=== PATIENT | female | born 1980 | race American Indian/Alaskan Native ===

== ENCOUNTER 2016-09-15 15:38 | Emergency (ER) | payer MEDICARE, OTHER ==
[2016-09-15 15:39] VITALS: BMI 53.2
[2016-09-15 15:46] VITALS: RESP 18; TEMP 98.2
[2016-09-15] MEDS: Albuterol-Ipratrop 3 mg / 0.5 (3 ml) UD IH SCH ×3 (16:20→16:41)
--- NOTE | 2016-09-15 16:33 | ED PDOC ---
Arrival/HPI - General Chief Complaint: Shortness Of Breath Time Seen by Provider: 09/15/16 16:02 Historian: Patient - History of Present Illness Narrative History of Present Illness (Text): 09/15/16 16:12 Brent Lees is a 36 year old female, with a history of asthma, presents to the emergency department complaining of shortness of breath and cough with sputum production since today morning. States she is currently moving, and was unable to use her nebs and inhaler treatments at home. States she used 2 doses Singulair for minimal symptomatic relief. She also complains of itchiness to the roof of the mouth, and states she usually feels like this after smoking marijuana; however, states that it was worse today morning. Denies any fever, chills, headache, dizziness, nausea, vomiting, diarrhea, or any other complaints at this time. Time/Duration: Other (today morning ) Symptom Course: Unchanged Severity Level: Mild Past Medical History - Provider Review Nursing Documentation Reviewed: Yes - Infectious Disease Hx of Infectious Diseases: None - Tetanus Immunization Tetanus Immunization: Unknown - Cardiac Hx Hypertension: Yes - Pulmonary Hx Asthma: Yes - Neurological Hx Neurological Disorder: No - HEENT Hx HEENT Disorder: No - Renal Hx Renal Disorder: No - Endocrine/Metabolic Hx Endocrine Disorders: Yes Hx Diabetes Mellitus Type 2: Yes - Hematological/Oncological Hx Blood Disorders: No - Integumentary Hx Dermatological Disorder: No - Musculoskeletal/Rheumatological Hx Musculoskeletal Disorders: Yes Hx Back Pain: Yes Hx Herniated Disk: Yes Other/Comment: HEEL SPURS - Gastrointestinal Hx Gastrointestinal Disorders: No - Genitourinary/Gynecological Hx Genitourinary Disorders: No - Psychiatric Hx Depression: No Hx Substance Use: Yes - Surgical History Hx Section: Yes Hx Dilation and Curettage: Yes Hx Musculoskeletal Surgery: Yes (back) Hx Tubal Ligation: Yes Other/Comment: Back surgery, 04/2013, 1 , 5 miscarriages - Anesthesia Hx Anesthesia: Yes - Suicidal Assessment Feels Threatened In Home Enviroment: No Family/Social History - Physician Review Nursing Documentation Reviewed: Yes Family/Social History: No Known Family HX Smoking Status: Never Smoked Hx Alcohol Use: Yes Frequency of alcohol use: Socially Hx Substance Use: Yes Substance used: marijuana Hx Substance Use Treatment: No Allergies/Home Meds Allergies/Adverse Reactions: Allergies cat dander Allergy (Mild, Verified 03/28/16 23:46) ITCHING dog dander Allergy (Mild, Verified 03/28/16 23:46) ITCHING shellfish derived Allergy (Verified 03/28/16 23:46) ANAPHYLAXIS shrimp Allergy (Verified 03/28/16 23:46) ANAPHYLAXIS Home Medications: Home Meds Medication Instructions Recorded Confirmed Albuterol HFA [Ventolin HFA 90 2 puff IH Q4H PRN 09/15/16 09/15/16 mcg/actuation (8 g)] Montelukast [Singulair] 10 mg PO DAILY 09/15/16 09/15/16 Review of Systems - Review of Systems Constitutional: absent: Fatigue, Fevers, Night Sweats Eyes: absent: Vision Changes ENT: Sore Throat, Sinus Congestion, Other (itchiness to roof of mouth ). absent : Voice Changes, Rhinorrhea, Epistaxis Respiratory: SOB, Cough, Sputum Cardiovascular: absent: Chest Pain, Edema, Calf Pain, BAZZI Gastrointestinal: absent: Abdominal Pain, Nausea, Vomiting, Appetite Changes Genitourinary Female: absent: Dysuria Musculoskeletal: absent: Back Pain, Neck Pain Skin: absent: Rash Neurological: absent: Headache, Dizziness Endocrine: absent: Polyuria Hemo/Lymphatic: absent: Easy Bleeding Physical Exam - Physical Exam Narrative Physical Exam (Text): Head: Atraumatic. Normocephalic. Eyes: PERRL. EOMI. Conjunctivae are not pale. No pain with eye movments ENT: Mucous membranes are moist and intact. Oropharynx is clear and symmetric. Single nonvesicular lesion noted to left upper palpate with no erythema or edema or purulence. Mild left tonsil prominence. No drooling. No uvular deviation. Left TM bulging but no erythema or edema. No mastoid tenderness. No facial swelling. No facial droop. Neck: Supple. Full ROM. No JVD. No lymphadenopathy. Cardiovascular: Regular rate. Regular rhythm. No murmurs, rubs, or gallops. Distal pulses are 2+ and symmetric. Pulmonary/Chest: No evidence of respiratory distress. No rales or rhonchi. B/l expiratory wheezing. No accessory muscle usage. Abdominal: Soft and non-distended. There is no tenderness. No rebound, guarding, or rigidity. No organomegaly. Good bowel sounds. Back: No CVA tenderness. Extremities: No edema. No cyanosis. No clubbing. Full range of motion in all extremities. No calf tenderness. Skin: Skin is warm and dry. No petechiae. No purpura. Neurological: Alert, awake, and oriented. Motor and sensory intact. No facial droop. Normal speech. Psychiatric: Good eye contact. Normal interaction, affect, and behavior. 09/16/16 20:17 Vital Signs Reviewed: Yes Vital Signs Temp Pulse Resp BP Pulse Ox 09/15/16 20:29 72 18 127/80 99 09/15/16 18:52 79 18 128/75 98 09/15/16 17:23 89 18 130/78 98 09/15/16 15:46 98.2 F 94 H 18 132/89 98 09/15/16 15:45 18 Temperature: Afebrile Blood Pressure: Normal Pulse: Regular Respiratory Rate: Normal Appearance: Positive for: Well-Appearing, Non-Toxic, Comfortable Pain Distress: Mild Mental Status: Positive for: Alert and Oriented X 3 Medical Decision Making ED Course and Treatment: 09/15/16 16:35 Impression: A 36 year old female who presents to the emergency department complaining of shortness of breath since today morning. Differential Diagnosis included but are not limited to: Asthma vs. Pneumonia Plan: -- EKG -- Labs, cardiac enzymes -- Chest X-ray -- Duoneb -- Solumedrol -- Reassess and disposition Progress Notes: Patient with hx of astthma. Ran out of nebs. No calf pain. No hypoxia. No pleuritic pain. URI symptoms described. She has nasal congestion but no erythema or facial swelling. 09/15/16 19:36 After 3 nebulizer treatments and steroids, patient has resolution of wheezing. She is able to speak in full sentences, no pain or discomfort, no hypoxia. Patient is stable for discharge, will discharge home on prescription for nebulizers which she ran out. Advised to return to emergency department for new/ worsening symptoms and follow up with PMD within few days. Potassium replaced. No symptomatic arrhythmias noted. No respiratory distress noted. CXR and labs reviewed with patient. Follow-up plan reviewed and discussed. Patient reports prior history of anemia. No active bleeding noted or reported. - Lab Interpretations Lab Results: 09/15/16 16:35 09/15/16 16:35 Lab Results 09/15/16 16:35: Sodium 141, Potassium 3.2 L, Chloride 104, Carbon Dioxide 28, Anion Gap 12, BUN 11, Creatinine 0.8, Est GFR ( Amer) > 60, Est GFR (Non- Af Amer) > 60, Random Glucose 101, Calcium 9.2, Total Bilirubin 0.5, AST 25, ALT 36, Alkaline Phosphatase 52, Lactate Dehydrogenase 629, Total Creatine Kinase 139, Troponin I < 0.01, Total Protein 7.8, Albumin 4.1, Globulin 3.7, Albumin/Globulin Ratio 1.1 09/15/16 16:35: WBC 6.6 D, RBC 4.54, Hgb 10.6 L, Hct 34.2 L, MCV 75.3 L, MCH 23.3 L, MCHC 31.0, RDW 16.3 H, Plt Count 394, MPV 10.1, Gran % 51.3, Lymph % ( Auto) 38.1 H, Towns % (Auto) 7.0 H, Eos % (Auto) 3.3, Baso % (Auto) 0.3, Gran # 3.39, Lymph # 2.5, Towns # 0.5, Eos # 0.2, Baso # 0.02 - RAD Interpretation Radiology Orders: 09/15/16 16:03 CHEST TWO VIEWS (PA/LAT) [RAD] Stat - Medication Orders Current Medication Orders: Discontinued Medications Albuterol/Ipratropium (Duoneb 3 Mg/0.5 Mg (3 Ml) Ud) 3 ml IH Q15M AISHWARYA Stop: 09/15/16 16:46 Last Admin: 09/15/16 16:41 Dose: 3 ml Methylprednisolone (Solu-Medrol) 125 mg IVP STAT STA Stop: 09/15/16 16:04 Last Admin: 09/15/16 16:21 Dose: 125 mg Potassium Chloride (K-Dur 20 Meq Er Tab) 40 meq PO STAT STA Stop: 09/15/16 19:39 Last Admin: 09/15/16 20:27 Dose: 40 meq - Scribe Statement The provider has reviewed the documentation as recorded by the Lucreciaibe Pilar Ahumada Provider Attestation: Provider Scribe Attestation: All medical record entries made by the Lucreciaibcyndi were at my direction and personally dictated by me. I have reviewed the chart and agree that the record accurately reflects my personal performance of the history, physical exam, medical decision making, and the department course for this patient. I have also personally directed, reviewed, and agree with the discharge instructions and disposition. Disposition/Present on Arrival - Present on Arrival Any Indicators Present on Arrival: No History of DVT/PE: No History of Uncontrolled Diabetes: No Urinary Catheter: No History of Decub. Ulcer: No History Surgical Site Infection Following: None - Disposition Have Diagnosis and Disposition been Completed?: Yes Diagnosis: Asthma exacerbation, Sinusitis Disposition: HOME/ ROUTINE Disposition Time: 20:00 Patient Plan: Discharge Condition: GOOD Discharge Instructions (ExitCare): Asthma (ED), Sinusitis (ED), Hypokalemia (ED ) Additional Instructions: Use nebulizer or inhaler as directed. For any fever, any chest pain, any shortness of breath, any abdominal pain, any nausea or vomiting, any pain with exertion, any pain with deep breaths, any bloody sputum or discharge, any persistent or worsening of symptoms, get rechecked. Follow-up with Dr. Fallon in 1-2 days. Prescriptions: Albuterol 0.083% [Albuterol 0.083% Inhal Yadira (2.5 mg/3 ml) UD] 2.5 mg IH Q6 PRN #20 neb PRN Reason: Wheezing predniSONE [Prednisone] 60 mg PO DAILY #15 tab Azithromycin [Zithromax] 250 mg PO DAILY #6 tab Referrals: PCP,NO [Primary Care Provider] - Follow up with primary Forms: [email or web address] (Italian)
[2016-09-15 17:07] LABS: BASO # 0.02 K/mm3 (0.0-2.0); BASO % 0.3 % (0.0-3.0); EOS # 0.2 (0.0-0.7); EOS % 3.3 % (1.5-5.0); GRAN # 3.39 (1.4-6.5); GRAN % 51.3 % (50.0-68.0); HEMOGLOBIN 10.6 gm/dL (12.0-16.0); LYMPH # 2.5 (1.2-3.4); LYMPH % 38.1 % (22.0-35.0); MEAN CELL VOLUME 75.3 fL (80.0-105.0); MEAN CORPUSCULAR HEMOGLOBIN 23.3 pg (25.0-35.0); MEAN PLATELET VOLUME 10.1 fl (7.0-11.0); MONO # 0.5 (0.1-0.6); PLATELET COUNT 394 10^3/uL (120.0-450.0); RBC 4.54 10^6/uL (3.5-6.1); RED CELL DISTRIBUTION WIDTH 16.3 % (11.5-14.5); WHITE BLOOD COUNT 6.6 10^3/ul (4.5-11.0)
[2016-09-15 17:09] LABS: ALB/GLOB RATIO 1.1 (1.1-1.8); ALBUMIN 4.1 g/dL (3.0-4.8); ALT/SGPT 36 U/L (7-56); AST/SGOT 25 U/L (15-39); BLOOD UREA NITROGEN 11 mg/dL (7-21); CALCIUM 9.2 mg/dL (8.4-10.5); GFR AFRICAN-AMERICAN > 60; GFR NON-AFRICAN AMERICAN > 60
[2016-09-15 17:22] LABS: TROPONIN I < 0.01 ng/mL
[2016-09-15] MEDS ORDERED: Potassium Chloride 20 mEq ER Tab PO STA (19:38)
[2016-09-15 20:30] VITALS: BP 127/80; PULSE 72; O2SAT 99
--- NOTE | 2016-09-15 20:37 | CARD ---
APPROVED REPORT EKG Measurement Heart [id number] <Conclusion> Normal sinus rhythm Nonspecific T wave abnormality Abnormal ECG
--- NOTE | 2016-09-16 09:01 | RAD ---
HISTORY: cough, sob COMPARISON: None available. TECHNIQUE: Chest PA and lateral FINDINGS: Examination limited by habitus. LUNGS: No focal consolidation. Please note that chest x-ray has limited sensitivity for the detection of pulmonary masses. PLEURA: No significant pleural effusion identified. No definite pneumothorax . CARDIOVASCULAR: The cardiomediastinal silhouette appears within normal limits of size. OSSEOUS STRUCTURES: No acute osseous abnormality identified. VISUALIZED UPPER ABDOMEN: Unremarkable. OTHER FINDINGS: None. IMPRESSION: No focal consolidation, significant pleural effusion, or definite pneumothorax identified.
== END 2016-09-15 20:30 | disposition home or self-care (01) ==
LOC: ED 15:38
DX: J45.901 Unspecified asthma with (acute) exacerbation (principal); J32.9 Chronic sinusitis, unspecified; I10 Essential (primary) hypertension
CPT/HCPCS: 71020; 80053; 82550; 83615; 84484; 85025; 93005; 94150; 96374; 99285; J2930

== ENCOUNTER 2017-03-18 01:12 | Emergency (ER) | payer MEDICARE, OTHER ==
[2017-03-18 01:12] VITALS: BMI 53.2
[2017-03-18 01:46] VITALS: TEMP 98.6
--- NOTE | 2017-03-18 02:32 | ED PDOC ---
Arrival/HPI - General Historian: Patient <Cyn Song - Last Filed: 03/18/17 03:28> - History of Present Illness Time/Duration: Other (2 days) Symptom Course: Unchanged Activities at Onset: Light Context: Home <Kevin Vu DO - Last Filed: 03/18/17 06:24> - General Chief Complaint: Back Pain Time Seen by Provider: 03/18/17 01:13 - History of Present Illness Narrative History of Present Illness (Text): CC: abdominal pain 03/18/17 02:28 36F presents with abdominal pain starting 01/14. Pain is located in lower quadrant, below umbilicus. Patient states she recently started her period and gets bad cramps 2-3 times a year. Patient states her pain is worse when sitting and when in position. Patient states the pain is a 15/10. Patient admits to feeling sore. Patient denies fever, chills, nausea, vomiting. Patient is not currently sexually active and last intercourse was done with condom, Patient denies abnormal vaginal discharge. Patient states she does not drink a lot of water, has not had regular bowel movements and states her stool is small in caliber. Patient states she urinates frequently and that she's pre-diabetic PMH: chronic back pain, prediabetic PSH: back surgery, section, tubal ligation 03/18/17 02:32 (Cyn Song) Past Medical History - Infectious Disease Hx of Infectious Diseases: None - Tetanus Immunization Tetanus Immunization: Unknown - Cardiac Hx Hypertension: Yes - Pulmonary Hx Asthma: Yes - Neurological Hx Neurological Disorder: No - HEENT Hx HEENT Disorder: No - Renal Hx Renal Disorder: No - Endocrine/Metabolic Hx Endocrine Disorders: Yes Hx Diabetes Mellitus Type 2: Yes - Hematological/Oncological Hx Blood Disorders: No - Integumentary Hx Dermatological Disorder: No - Musculoskeletal/Rheumatological Hx Musculoskeletal Disorders: Yes Hx Back Pain: Yes Hx Herniated Disk: Yes Other/Comment: HEEL SPURS - Gastrointestinal Hx Gastrointestinal Disorders: No - Genitourinary/Gynecological Hx Genitourinary Disorders: No - Psychiatric Hx Depression: No Hx Substance Use: Yes - Surgical History Hx Section: Yes Hx Dilation and Curettage: Yes Hx Musculoskeletal Surgery: Yes (back) Hx Tubal Ligation: Yes Other/Comment: Back surgery, 04/2013, 1 , 5 miscarriages - Anesthesia Hx Anesthesia: Yes - Suicidal Assessment Feels Threatened In Home Enviroment: No <Cyn Song - Last Filed: 03/18/17 03:28> Family/Social History - Physician Review Nursing Documentation Reviewed: Yes Family/Social History: Unknown Family HX Smoking Status: Never Smoked Hx Alcohol Use: Yes Hx Substance Use: Yes Substance used: marijuana Hx Substance Use Treatment: No <NohemiCyn - Last Filed: 03/18/17 03:28> Allergies/Home Meds <Cyn Song - Last Filed: 03/18/17 03:28> <Mirella Kevin - Last Filed: 03/18/17 06:24> Allergies/Adverse Reactions: Allergies cat dander Allergy (Mild, Verified 03/28/16 23:46) ITCHING dog dander Allergy (Mild, Verified 03/28/16 23:46) ITCHING shellfish derived Allergy (Verified 03/28/16 23:46) ANAPHYLAXIS shrimp Allergy (Verified 03/28/16 23:46) ANAPHYLAXIS Home Medications: Home Meds Medication Instructions Recorded Confirmed Albuterol HFA [Ventolin HFA 90 2 puff IH Q4H PRN 09/15/16 03/18/17 mcg/actuation (8 g)] Review of Systems - Physician Review All systems were reviewed & negative as marked: Yes - Review of Systems Constitutional: absent: Fevers Gastrointestinal: Abdominal Pain, Constipation. absent: Diarrhea, Nausea, Vomiting Genitourinary Female: Other (polyuria). absent: Dysuria, Hematuria <Kevin Vu DO - Last Filed: 03/18/17 06:24> Physical Exam Vital Signs Reviewed: Yes Temperature: Afebrile Blood Pressure: Normal Pulse: Regular Respiratory Rate: Normal Appearance: Positive for: Well-Appearing, Non-Toxic, Comfortable Pain Distress: None Mental Status: Positive for: Alert and Oriented X 3 - Systems Exam Head: Present: Atraumatic, Normocephalic Pupils: Present: PERRL Extroacular Muscles: Present: EOMI Conjunctiva: Present: Normal Mouth: Present: Moist Mucous Membranes Neck: Present: Normal Range of Motion Respiratory/Chest: Present: Clear to Auscultation, Good Air Exchange. No: Respiratory Distress, Accessory Muscle Use Cardiovascular: Present: Regular Rate and Rhythm, Normal S1, S2. No: Murmurs Abdomen: Present: Tenderness (lower quadrant inferior to the umbelicus ), Distention (Soft), Normal Bowel Sounds. No: Peritoneal Signs Back: Present: Normal Inspection Upper Extremity: Present: Normal Inspection. No: Cyanosis, Edema Lower Extremity: Present: Normal Inspection. No: Edema Neurological: Present: GCS=15, CN II-XII Intact, Speech Normal Skin: Present: Warm, Dry, Normal Color. No: Rashes Psychiatric: Present: Alert, Oriented x 3, Normal Insight, Normal Concentration <Kevin Vu DO - Last Filed: 03/18/17 06:24> Vital Signs Temp Pulse Resp BP Pulse Ox 03/18/17 04:30 84 19 126/60 99 03/18/17 01:46 98.6 F 80 78 H 133/88 100 Medical Decision Making <Cyn Song - Last Filed: 03/18/17 03:28> <Kevin Vu DO - Last Filed: 03/18/17 06:24> ED Course and Treatment: CBC, CMP, Mg, ph, UA were drawn 03/18/17 04:23 Patient was given Toradol IM for abdominal pain Urinalysis: positive for urinary tract infection patient was given a dose of macrobid and sent home with a prescription for macrobid Patient Seen With Resident: In agreement with resident note which contains more details about the patient. Patient was seen and evaluated with resident. Came up with plan and treatment together. 36 year old female presents complaining lower abdominal pain that began 2 days ago. Plan: -- Torafol -- Macrobid -- Urinalysis w/ micro (Kevin Vu DO) - Lab Interpretations Lab Results: Lab Results 03/18/17 02:30: Urine Color Red, Urine Appearance Cloudy, Urine pH 6.5, Ur Specific [place] 1.025, Urine Protein 100 H, Urine Glucose (UA) Negative, Urine Ketones Trace H, Urine Blood Large H, Urine Nitrate Positive H, Urine Bilirubin Small H, Urine Urobilinogen 1.0 H, Ur Leukocyte Esterase Trace H, Urine RBC Tntc , Urine WBC 1 - 3, Ur Epithelial Cells 0 - 2, Urine Bacteria Mod - Medication Orders Current Medication Orders: Discontinued Medications Ketorolac Tromethamine (Toradol) 60 mg IM STAT STA Stop: 03/18/17 02:28 Last Admin: 03/18/17 02:38 Dose: 60 mg MAR Pain Assessment Document 03/18/17 02:38 RD (Rec: 03/18/17 02:39 RD [id number]) Pain Reassessment Is this a pain reassessment? No Sleep Is patient sleeping during reassessment? No Presence of Pain Presence of Pain Yes IM Administration Charges Document 03/18/17 02:38 RD (Rec: 03/18/17 02:39 RD [id number]) Injection Site MAR Injection Site Left Deltoid Charges for Administration # of IM Administrations 1 Nitrofurantoin Macrocrystals (Macrobid) 100 mg PO ONCE ONE Stop: 03/18/17 03:28 Last Admin: 03/18/17 04:30 Dose: 100 mg <Cyn Song - Last Filed: 03/18/17 03:28> - Scribe Statement The provider has reviewed the documentation as recorded by the Scribe <Kevin Vu DO - Last Filed: 03/18/17 06:24> - Scribe Statement Nissa Dhaliwal Provider Scribe Attestation: All medical record entries made by the Scribe were at my direction and personally dictated by me. I have reviewed the chart and agree that the record accurately reflects my personal performance of the history, physical exam, medical decision making, and the department course for this patient. I have also personally directed, reviewed, and agree with the discharge instructions and disposition. (Kevin Vu DO) Disposition/Present on Arrival - Present on Arrival Any Indicators Present on Arrival: No History of DVT/PE: No History of Uncontrolled Diabetes: No Urinary Catheter: No History of Decub. Ulcer: No History Surgical Site Infection Following: None - Disposition Have Diagnosis and Disposition been Completed?: Yes Disposition Time: 03:28 Patient Plan: Discharge <Cyn Song - Last Filed: 03/18/17 03:28> - Disposition Disposition Time: 03:10 <Kevin Vu DO - Last Filed: 03/18/17 06:24> - Disposition Diagnosis: UTI (urinary tract infection) Disposition: HOME/ ROUTINE Condition: GOOD Additional Instructions: take antibiotics as directed follow up with primary care doctor in one week if symptoms do not get better Prescriptions: Nitrofurantoin Macrocrystals [Macrobid] 100 mg PO BID #13 cap Referrals: James Fallon DO [Primary Care Provider] - Follow up with primary Forms: [employer] (Polish)
[2017-03-18 02:44] LABS: PH,URINE 6.5 (4.7-8.0); URINE BILIRUBIN SMALL (NEGATIVE); URINE BLOOD LARGE (NEGATIVE); URINE GLUCOSE (UA) NEGATIVE (NEGATIVE); URINE LEUKOCYTE ESTERASE TRACE Leu/uL (NEGATIVE); URINE NITRATE POSITIVE (NEGATIVE); URINE PROTEIN 100 mg/dL (<30 mg/dL)
[2017-03-18 02:49] LABS: URINE APPEARANCE CLOUDY (CLEAR); URINE COLOR RED (YELLOW)
[2017-03-18 03:09] LABS: URINE BACTERIA MOD (NEG); URINE EPITHELIAL CELLS 0 - 2 /hpf (0-5); URINE RBC TNTC /hpf (0-2)
[2017-03-18 04:32] VITALS: BP 126/60; PULSE 84; RESP 19; O2SAT 99
== END 2017-03-18 04:30 | disposition home or self-care (01) ==
LOC: ED 01:12
DX: N39.0 Urinary tract infection, site not specified (principal)
CPT/HCPCS: 81001; 96372; 99283; J1885

== ENCOUNTER 2017-07-24 14:30 | Emergency (ER) | payer MEDICARE, OTHER ==
[2017-07-24 14:30] VITALS: BMI 53.2
[2017-07-24] MEDS ORDERED: Albuterol-Ipratrop 3 mg / 0.5 (3 ml) UD IH STA ×2 (15:23→16:51)
--- NOTE | 2017-07-24 15:27 | ED PDOC ---
Arrival/HPI - General Chief Complaint: Cough, Cold, Congestion Time Seen by Provider: 07/24/17 14:34 Historian: Patient - History of Present Illness Narrative History of Present Illness (Text): 07/24/17 15:24 37yr old female with hx of asthma presents today with cough, nasal congestion, ear itching x 4 days. pt states she has been having productive cough with green sputum. pt states she has been wheezing and has been using her asthma pump without relief. pt denies fever/chills. + sick contacts at home. pt states her child was sick with similar symptoms 2 weeks ago. no abdominal pain. no nausea, vomiting, diarrhea. no dizziness or weakness. pt denies chest pain or shortness of breath. pt states she doesnt have a nebulizer at home because she lost it during the move. no other complaints. Past Medical History - Provider Review Nursing Documentation Reviewed: Yes - Travel History Have you recently traveled outside [place] w/in the past 3 mons?: No - Infectious Disease Hx of Infectious Diseases: None - Tetanus Immunization Tetanus Immunization: Unknown - Cardiac Hx Cardiac Disorders: Yes Hx Hypertension: Yes - Pulmonary Hx Respiratory Disorders: Yes Hx Asthma: Yes - Neurological Hx Neurological Disorder: Yes Hx Migraine: Yes - HEENT Hx HEENT Disorder: No - Renal Hx Renal Disorder: No - Endocrine/Metabolic Hx Endocrine Disorders: Yes Hx Diabetes Mellitus Type 2: Yes - Hematological/Oncological Hx Blood Disorders: No - Integumentary Hx Dermatological Disorder: No - Musculoskeletal/Rheumatological Hx Musculoskeletal Disorders: Yes Hx Back Pain: Yes Hx Herniated Disk: Yes Other/Comment: HEEL SPURS - Gastrointestinal Hx Gastrointestinal Disorders: No - Genitourinary/Gynecological Hx Genitourinary Disorders: No - Psychiatric Hx Psychophysiologic Disorder: No Hx Depression: No Hx Substance Use: Yes - Surgical History Hx Section: Yes Hx Dilation and Curettage: Yes Hx Musculoskeletal Surgery: Yes (back) Hx Tubal Ligation: Yes Other/Comment: Back surgery, 04/2013, 1 , 5 miscarriages - Anesthesia Hx Anesthesia: Yes - Suicidal Assessment Feels Threatened In Home Enviroment: No Family/Social History - Physician Review Nursing Documentation Reviewed: Yes Family/Social History: Unknown Family HX Smoking Status: Never Smoked Hx Alcohol Use: Yes Hx Substance Use: Yes Substance used: marijuana Hx Substance Use Treatment: No Allergies/Home Meds Allergies/Adverse Reactions: Allergies cat dander Allergy (Mild, Verified 07/24/17 14:54) ITCHING dog dander Allergy (Mild, Verified 07/24/17 14:54) ITCHING shellfish derived Allergy (Verified 07/24/17 14:54) ANAPHYLAXIS shrimp Allergy (Verified 07/24/17 14:54) ANAPHYLAXIS Home Medications: Home Meds Medication Instructions Recorded Confirmed Albuterol HFA [Ventolin HFA 90 2 puff IH Q4H PRN 09/15/16 07/24/17 mcg/actuation (8 g)] Review of Systems - Review of Systems Constitutional: absent: Fatigue, Fevers ENT: Sore Throat, Sinus Congestion Respiratory: Cough, Sputum (green). absent: SOB Cardiovascular: absent: Chest Pain, Palpitations Gastrointestinal: absent: Abdominal Pain, Nausea, Vomiting Genitourinary Female: absent: Dysuria Musculoskeletal: Other (no calf pain). absent: Arthralgias, Back Pain, Neck Pain Skin: absent: Rash, Pruritis Neurological: absent: Headache, Dizziness Psychiatric: absent: Anxiety, Depression Physical Exam Vital Signs Reviewed: Yes Vital Signs Temp Pulse Resp BP Pulse Ox 07/24/17 14:55 98.4 F 84 17 119/88 99 Temperature: Afebrile Blood Pressure: Normal Pulse: Regular Respiratory Rate: Normal Appearance: Positive for: Well-Appearing, Non-Toxic, Comfortable Pain Distress: None Mental Status: Positive for: Alert and Oriented X 3 - Systems Exam Head: Present: Atraumatic Extroacular Muscles: Present: EOMI Conjunctiva: Present: Normal Ears: Present: Normal, NORMAL TM Mouth: Present: Moist Mucous Membranes. No: Drooling, Trismus Pharnyx: Present: Normal. No: ERYTHEMA, EXUDATE, TONSILS ENLARGED Nose (External): Present: Atraumatic Nose (Internal): Present: Normal Inspection Neck: Present: Normal Range of Motion, Trachea Midline Respiratory/Chest: Present: Good Air Exchange, Wheezes (slight expiratory wheeze noted), Other (dry cough noted). No: Clear to Auscultation, Respiratory Distress, Accessory Muscle Use, Retracting, Rhonchi, Tachypneic Cardiovascular: Present: Regular Rate and Rhythm. No: Murmurs, Tachycardic Upper Extremity: Present: Normal ROM Lower Extremity: Present: Normal ROM. No: CALF TENDERNESS Neurological: Present: GCS=15, Speech Normal Skin: Present: Warm, Dry, Normal Color. No: Rashes Psychiatric: Present: Alert, Oriented x 3 Medical Decision Making ED Course and Treatment: 07/24/17 15:28 Patient is nontoxic well-appearing in no distress. Vital signs are stable. duoneb and prednisone given po chest xray; no infiltrate, no effusion pt reassessment; pt feeling better; still with slight wheeze noted; will add 2nd duoneb; pt reassessment; pt feeling much better; lungs cta bilaterally. vitals remain stable. no tachycardia, no hypoxia, no distress. Zithromax given po I advised follow up with primary care physician within the next 2 days. I advised increase fluids and return if symptoms worsen persist or if new symptoms develop. will given rx for zithromax and nebulizer and albuterol rx. all results discussed with patient in depth; Patient verbalizes understanding of discharge instructions and need for immediate followup. all aspects of this case were discussed the attending of record. IMPRESSION; cough Albuterol nebulizer; 3 times daily as needed for cough. Zithromax one tablet once daily x4 days FLonase; 2 sprays each nostril once daily. Increase fluids Followup with primary care physician the next 2 days Return if symptoms worsen persist or if new symptoms develop Reassessment Condition: Re-examined, Improved (cough has resolved; pt feeling much better. vitals stable. ) - RAD Interpretation Radiology Orders: 07/24/17 15:23 CHEST TWO VIEWS (PA/LAT) [RAD] Stat - Medication Orders Current Medication Orders: Azithromycin (Zithromax) 500 mg PO STAT STA PRN Reason: Protocol Stop: 07/24/17 17:08 Discontinued Medications Albuterol/Ipratropium (Duoneb 3 Mg/0.5 Mg (3 Ml) Ud) 3 ml IH STAT STA Stop: 07/24/17 15:24 Last Admin: 07/24/17 15:46 Dose: 3 ml Albuterol/Ipratropium (Duoneb 3 Mg/0.5 Mg (3 Ml) Ud) 3 ml IH STAT STA Stop: 07/24/17 16:52 Last Admin: 07/24/17 16:53 Dose: 3 ml Prednisone (Prednisone Tab) 60 mg PO STAT ONE Stop: 07/24/17 15:24 Last Admin: 07/24/17 15:47 Dose: 60 mg Disposition/Present on Arrival - Present on Arrival Any Indicators Present on Arrival: No History of DVT/PE: No History of Uncontrolled Diabetes: No Urinary Catheter: No History of Decub. Ulcer: No History Surgical Site Infection Following: None - Disposition Have Diagnosis and Disposition been Completed?: Yes Diagnosis: Cough Disposition: HOME/ ROUTINE Disposition Time: 17:11 Patient Plan: Discharge Condition: GOOD Discharge Instructions (ExitCare): Cough, Adult (DC) Additional Instructions: Albuterol nebulizer; 3 times daily as needed for cough. Zithromax one tablet once daily x4 days FLonase; 2 sprays each nostril once daily. Increase fluids Followup with primary care physician the next 2 days Return if symptoms worsen persist or if new symptoms develop Prescriptions: Albuterol HFA [Ventolin HFA 90 mcg/actuation (8 g)] 2 puff IH [id number] PRN #1 inhaler PRN Reason: Cough Albuterol 0.083% [Albuterol 0.083% Inhal Yadira (2.5 mg/3 ml) UD] 1 vial IH TID PRN #1 packet PRN Reason: Cough Azithromycin [Zithromax] 250 mg PO DAILY #4 tab Fluticasone Nasal [Flonase] 2 spr NS DAILY #1 spr Nebulizer [Compact Compressor Nebulizer] 1 dev XX PRN PRN #1 dev PRN Reason: Cough Referrals: James Fallon DO [Primary Care Provider] - Follow up with primary Bam Peters MD [Staff Provider] - Follow up with primary Forms: [employer] (Khmer), WORK NOTE
--- NOTE | 2017-07-24 17:03 | RAD ---
HISTORY: Cough, green sputum COMPARISON: 09/15/2016. TECHNIQUE: Chest PA and lateral FINDINGS: LUNGS: No active pulmonary disease. PLEURA: No significant pleural effusion identified. No pneumothorax apparent. CARDIOVASCULAR: Normal. OSSEOUS STRUCTURES: No significant abnormalities. VISUALIZED UPPER ABDOMEN: Normal. OTHER FINDINGS: None. IMPRESSION: No active disease. No significant interval change compared to the prior examination(s).
[2017-07-24 17:47] VITALS: BP 125/82; PULSE 88; RESP 16; TEMP 98.1; O2SAT 100
== END 2017-07-24 17:45 | disposition home or self-care (01) ==
LOC: ED 14:30
DX: R05 Cough (principal); J45.909 Unspecified asthma, uncomplicated

== ENCOUNTER 2017-08-05 23:27 | Emergency (ER) | payer MEDICARE, OTHER ==
[2017-08-05 23:28] VITALS: BMI 53.2
[2017-08-05 23:41] VITALS: TEMP 98.5
--- NOTE | 2017-08-05 23:46 | ED PDOC ---
Arrival/HPI - General Chief Complaint: Chest Pain Time Seen by Provider: 08/05/17 23:29 Historian: Patient - History of Present Illness Narrative History of Present Illness (Text): you were treated in the ED today for hx of asthma, and for the past day having burning discomfort mid-sternal chest when eating and secondarily having generalized back spasm but other otherwise without any head injury/fall/neck pain/loss of consciousness/nausea/vomiting/headache/dizziness/difficulty breathing/abdomen pain/numbness/tingling/loss of limb function/pain with urination/travel/prior blood clots/prior cancer/hormonal use. 08/05/17 23:48 Time/Duration: 24 hours Symptom Course: Intermittent Quality: Burning Severity Level: 2 Activities at Onset: Rest Context: Sitting Past Medical History - Provider Review Nursing Documentation Reviewed: Yes - Travel History Have you recently traveled outside [place] w/in the past 3 mons?: No - Infectious Disease Hx of Infectious Diseases: None - Tetanus Immunization Tetanus Immunization: Unknown - Cardiac Hx Cardiac Disorders: Yes Hx Hypertension: Yes - Pulmonary Hx Respiratory Disorders: Yes Hx Asthma: Yes - Neurological Hx Neurological Disorder: Yes Hx Migraine: Yes - HEENT Hx HEENT Disorder: No - Renal Hx Renal Disorder: No - Endocrine/Metabolic Hx Endocrine Disorders: Yes Hx Diabetes Mellitus Type 2: Yes - Hematological/Oncological Hx Blood Disorders: No - Integumentary Hx Dermatological Disorder: No - Musculoskeletal/Rheumatological Hx Musculoskeletal Disorders: Yes Hx Back Pain: Yes Hx Herniated Disk: Yes Other/Comment: HEEL SPURS - Gastrointestinal Hx Gastrointestinal Disorders: No - Genitourinary/Gynecological Hx Genitourinary Disorders: No - Psychiatric Hx Psychophysiologic Disorder: No Hx Depression: No Hx Substance Use: Yes - Surgical History Hx Section: Yes Hx Dilation and Curettage: Yes Hx Musculoskeletal Surgery: Yes (back) Hx Tubal Ligation: Yes Other/Comment: Back surgery, 04/2013, 1 , 5 miscarriages - Anesthesia Hx Anesthesia: Yes - Suicidal Assessment Feels Threatened In Home Enviroment: No Family/Social History - Physician Review Nursing Documentation Reviewed: Yes Family/Social History: No Known Family HX Smoking Status: Never Smoked Hx Alcohol Use: Yes Hx Substance Use: Yes Substance used: marijuana Hx Substance Use Treatment: No Allergies/Home Meds Allergies/Adverse Reactions: Allergies cat dander Allergy (Mild, Verified 08/05/17 23:36) ITCHING dog dander Allergy (Mild, Verified 08/05/17 23:36) ITCHING shellfish derived Allergy (Verified 08/05/17 23:36) ANAPHYLAXIS shrimp Allergy (Verified 08/05/17 23:36) ANAPHYLAXIS Home Medications: Home Meds Medication Instructions Recorded Confirmed Albuterol HFA [Ventolin HFA 90 2 puff IH Q4H PRN 09/15/16 08/05/17 mcg/actuation (8 g)] Review of Systems - Review of Systems Constitutional: Normal Eyes: Normal ENT: Normal Respiratory: Normal Cardiovascular: Chest Pain, Other (reflux/burning/mid-sternal chest discomfort when eating.) Gastrointestinal: Normal Genitourinary Female: Normal Musculoskeletal: Normal Skin: Normal Neurological: Normal Endocrine: Normal Hemo/Lymphatic: Normal Psychiatric: Normal Physical Exam Vital Signs Reviewed: Yes Vital Signs Temp Pulse Resp BP Pulse Ox 08/05/17 23:40 98.5 F 83 18 138/78 96 Temperature: Afebrile Blood Pressure: Hypertensive Pulse: Regular Respiratory Rate: Normal Appearance: Positive for: Well-Appearing, Non-Toxic, Comfortable Pain Distress: None Mental Status: Positive for: Alert and Oriented X 3 - Systems Exam Head: Present: Atraumatic, Normocephalic Pupils: Present: PERRL Extroacular Muscles: Present: EOMI Conjunctiva: Present: Normal Ears: Present: Normal Mouth: Present: Moist Mucous Membranes Pharnyx: Present: Normal Nose (External): Present: Atraumatic Nose (Internal): Present: Normal Inspection, Other (no c-t-l spinal or paraspinal tenderness) Neck: Present: Normal Range of Motion Respiratory/Chest: Present: Clear to Auscultation, Good Air Exchange Cardiovascular: Present: Regular Rate and Rhythm Abdomen: No: Tenderness, Distention, Normal Bowel Sounds, Peritoneal Signs, Rebound, Guarding, McBurney's Point Tender, Rovsing's Sign Present, Hernias, Feeding Tubes, Ostomy Tubes, Mass/Organomegaly, Scars, Other Back: Present: Normal Inspection Upper Extremity: Present: Normal Inspection Lower Extremity: Present: Normal Inspection Neurological: Present: GCS=15, CN II-XII Intact, Speech Normal, Motor Func Grossly Intact Skin: Present: Warm, Normal Color Psychiatric: Present: Alert, Oriented x 3, Normal Insight, Normal Concentration Medical Decision Making ED Course and Treatment: you were treated in the ED today for hx of asthma, and for the past day having burning discomfort mid-sternal chest when eating and secondarily having generalized back spasm but other otherwise without any head injury/fall/neck pain/loss of consciousness/nausea/vomiting/headache/dizziness/difficulty breathing/abdomen pain/numbness/tingling/loss of limb function/pain with urination/travel/prior blood clots/prior cancer/hormonal use. You were otherwise breathing easily, pink moist lips, smiling and talking easily, good strength/sensation, alert/oriented, walking easily, clear lungs, no abdomen tenderness, no fever temp 98.5, stable heart rate 83, stable breathing rate 18, excellent oxygen level 96% room air, elevated blood pressure 138/78 which we recommend repeat in 2-3 days primary care office to determine further treatment , you have blood tests no infection count 7, stable blood level hemoglobin 9.6/ platelets 411, stable chemistry, heart blood test negative less than 0.01, lipase 184, urine test no acute sign of infection nitrite/leukocyte negative, urine test negative, radiology chest xray initial no acute findings, ECG normal sinus rhythm, protonix, tylenol for after initial evaluation mild gradual onset migraine headache similar to prior as you have a history and asked additionally for sumatriptan which has helped in the past as well, flexeril for back muscle spasm, observation done in the ED with improvement, counselled to eat low fat foods and thus discharged home with safe ride uber as you aren't driving. 1. Recommend pepcid daily for anti-acid control. 2. recommend flexeril as directed for muscle spasm and don't work/drive/drink alcohol when using. 3. Recommend follow-up primary care 2-3 days to review symptoms, referral to gastroenterology to review your symptoms/urobilinogen in urine to ensure further care, cardiology clinic to review your symptoms, referral to urology for protein in urine to ensure further care, neurology clinic to review your symptoms. 4. If any worsening pain, fever, chills, nausea , vomiting, difficulty breathing, numbness, loss of limb function, pain with urination or any medical condition then return to the ED. PERC negative 08/06/17 01:08 Reassessment Condition: Re-examined, Improved - Lab Interpretations Lab Results: 08/05/17 23:55 08/05/17 23:55 Lab Results 08/06/17 00:05: Urine Color Yellow, Urine Appearance Sl cloudy, Urine pH 6.5, Ur Specific [place] 1.025, Urine Protein Trace H, Urine Glucose (UA) Negative, Urine Ketones Negative, Urine Blood Small H, Urine Nitrate Negative, Urine Bilirubin Negative, Urine Urobilinogen 2.0 H, Ur Leukocyte Esterase Negative, Urine RBC 1 - 3, Urine WBC 0 - 2, Ur Epithelial Cells 6 - 8, Urine Bacteria Few 08/05/17 23:55: Sodium 142, Potassium 3.4 L, Chloride 108 H, Carbon Dioxide 23, Anion Gap 14, BUN 13, Creatinine 0.8, Est GFR ( Amer) > 60, Est GFR (Non- Af Amer) > 60, Random Glucose 98, Calcium 8.8, Magnesium 1.9, Total Bilirubin 0.2, AST 33, ALT 24, Alkaline Phosphatase 54, Lactate Dehydrogenase 578, Total Creatine Kinase 143, Troponin I < 0.01, Total Protein 7.4, Albumin 3.9, Globulin 3.4, Albumin/Globulin Ratio 1.1, Lipase 184 08/05/17 23:55: PT 12.0, INR 1.05, APTT 30.9 08/05/17 23:55: WBC 7.1, RBC 4.31, Hgb 9.6 L, Hct 31.1 L, MCV 72.2 L, MCH 22.3 L , MCHC 30.9 L, RDW 17.4 H, Plt Count 411, MPV 10.0, Gran % 44.4 L, Lymph % (Auto ) 44.7 H, [place] % (Auto) 7.5 H, Eos % (Auto) 3.3, Baso % (Auto) 0.1, Gran # 3.14 , Lymph # (Auto) 3.2, [place] # (Auto) 0.5, Eos # (Auto) 0.2, Baso # (Auto) 0.01 I have reviewed the lab results: Yes - RAD Interpretation Radiology Orders: 08/06/17 00:24 CHEST PORTABLE [RAD] Stat Appeals Assistant: ED Physician (Chest X-Ray no acute.) - EKG Interpretation Interpreted by ED Physician: Yes (NSR) Type: 12 lead EKG - Medication Orders Current Medication Orders: Discontinued Medications Acetaminophen (Tylenol 325mg Tab) 975 mg PO STAT STA Stop: 08/06/17 00:34 Last Admin: 08/06/17 00:45 Dose: 975 mg MAR Pain/Vitals Document 08/06/17 00:45 RD (Rec: 08/06/17 00:45 RD [id number]) Pain Reassessment Is This A Pain ReAssessment? No Sleep Is patient sleeping during reassessment? No Presence of Pain Presence of Pain Yes Location Pain Location Body Repairer General Description Constant Pantoprazole Sodium (Protonix Inj) 40 mg IVP STAT STA Stop: 08/05/17 23:42 Last Admin: 08/06/17 00:13 Dose: 40 mg IVP Administration Document 08/06/17 00:13 RD (Rec: 08/06/17 00:13 RD [id number]) Charges for Administration # of IVP Administrations 1 Potassium Chloride (K-Dur 20 Meq Er Tab) 40 meq PO STAT STA Stop: 08/06/17 00:23 Last Admin: 08/06/17 00:46 Dose: 40 meq Sumatriptan Succinate (Imitrex Tab) 25 mg PO ONCE ONE Stop: 08/06/17 01:02 Last Admin: 08/06/17 01:09 Dose: 25 mg Disposition/Present on Arrival - Present on Arrival Any Indicators Present on Arrival: No History of DVT/PE: No History of Uncontrolled Diabetes: No Urinary Catheter: No History of Decub. Ulcer: No History Surgical Site Infection Following: None - Disposition Have Diagnosis and Disposition been Completed?: Yes Diagnosis: Reflux esophagitis Disposition: HOME/ ROUTINE Disposition Time: 01:03 Patient Plan: Discharge Patient Problems: Current Active Problems Problem Status Onset Reflux esophagitis Acute Condition: IMPROVED Discharge Instructions (ExitCare): Acid Reflux (Gastroesophageal Reflux Disease ) in Adults Additional Instructions: you were treated in the ED today for hx of asthma, and for the past day having burning discomfort mid-sternal chest when eating and secondarily having generalized back spasm but other otherwise without any head injury/fall/neck pain/loss of consciousness/nausea/vomiting/headache/dizziness/difficulty breathing/abdomen pain/numbness/tingling/loss of limb function/pain with urination/travel/prior blood clots/prior cancer/hormonal use. You were otherwise breathing easily, pink moist lips, smiling and talking easily, good strength/sensation, alert/oriented, walking easily, clear lungs, no abdomen tenderness, no fever temp 98.5, stable heart rate 83, stable breathing rate 18, excellent oxygen level 96% room air, elevated blood pressure 138/78 which we recommend repeat in 2-3 days primary care office to determine further treatment , you have blood tests no infection count 7, stable blood level hemoglobin 9.6/ platelets 411, stable chemistry, heart blood test negative less than 0.01, lipase 184, urine test no acute sign of infection nitrite/leukocyte negative, urine test negative, radiology chest xray initial no acute findings, ECG normal sinus rhythm, protonix, tylenol for after initial evaluation mild gradual onset migraine headache similar to prior as you have a history and asked additionally for sumatriptan which has helped in the past as well, flexeril for back muscle spasm, observation done in the ED with improvement, counselled to eat low fat foods and thus discharged home with safe ride uber as you aren't driving. 1. Recommend pepcid daily for anti-acid control. 2. recommend flexeril as directed for muscle spasm and don't work/drive/drink alcohol when using. 3. Recommend follow-up primary care 2-3 days to review symptoms, referral to gastroenterology to review your symptoms/urobilinogen in urine to ensure further care, cardiology clinic to review your symptoms, referral to urology for protein in urine to ensure further care, neurology clinic to review your symptoms. 4. If any worsening pain, fever, chills, nausea , vomiting, difficulty breathing, numbness, loss of limb function, pain with urination or any medical condition then return to the ED. Prescriptions: Cyclobenzaprine [Cyclobenzaprine HCl] 10 mg PO Q8 PRN 5 Days #15 tab PRN Reason: breakthrough pain Famotidine [Pepcid] 20 mg PO DAILY 10 Days #10 tab Referrals: James Fallon DO [Primary Care Provider] - Follow up with primary Forms: [employer] ([place]an)
[2017-08-06 00:06] LABS: BASO # 0.01 K/mm3 (0.0-2.0); BASO % 0.1 % (0.0-3.0); EOS # 0.2 (0.0-0.7); EOS % 3.3 % (1.5-5.0); GRAN # 3.14 (1.4-6.5); GRAN % 44.4 % (50.0-68.0); HEMOGLOBIN 9.6 g/dL (12.0-16.0); LYMPH # 3.2 (1.2-3.4); LYMPH % 44.7 % (22.0-35.0); MEAN CELL VOLUME 72.2 fl (80.0-105.0); MEAN CORPUSCULAR HEMOGLOBIN 22.3 pg (25.0-35.0); MEAN CORPUSCULAR HGB CONC 30.9 g/dl (31.0-37.0); MONO # 0.5 (0.1-0.6); MONO % 7.5 % (1.0-6.0); RBC 4.31 10^6/uL (3.5-6.1); RED CELL DISTRIBUTION WIDTH 17.4 % (11.5-14.5); WHITE BLOOD COUNT 7.1 10^3/ul (4.5-11.0)
[2017-08-06 00:16] LABS: INR 1.05 (0.93-1.08); PARTIAL THROMBOPLASTIN TIME 30.9 Seconds (25.1-36.5)
[2017-08-06 00:17] LABS: ALB/GLOB RATIO 1.1 (1.1-1.8); ALBUMIN 3.9 g/dL (3.0-4.8); ALT/SGPT 24 U/L (7-56); AST/SGOT 33 U/L (14-36); BLOOD UREA NITROGEN 13 mg/dL (7-21); CALCIUM 8.8 mg/dL (8.4-10.5); GFR AFRICAN-AMERICAN > 60; GFR NON-AFRICAN AMERICAN > 60; LIPASE 184 U/L (23-300)
[2017-08-06] MEDS ORDERED: Potassium Chloride 20 mEq ER Tab PO STA (00:22)
[2017-08-06 00:28] LABS: PH,URINE 6.5 (4.7-8.0); URINE BILIRUBIN NEGATIVE (NEGATIVE); URINE BLOOD SMALL (NEGATIVE); URINE GLUCOSE (UA) NEGATIVE (NEGATIVE); URINE LEUKOCYTE ESTERASE NEGATIVE Leu/uL (NEGATIVE); URINE PROTEIN TRACE mg/dL (<30 mg/dL)
[2017-08-06 00:29] LABS: TROPONIN I < 0.01 ng/mL
[2017-08-06 00:32] LABS: URINE COLOR YELLOW (YELLOW)
[2017-08-06 00:33] LABS: URINE APPEARANCE SL CLOUDY (CLEAR)
[2017-08-06 00:42] LABS: URINE BACTERIA FEW (NEG); URINE WBC 0 - 2 /hpf (0-6)
[2017-08-06 01:40] VITALS: BP 130/72; PULSE 80; RESP 19; O2SAT 99
--- NOTE | 2017-08-06 07:29 | RAD ---
HISTORY: Chest discomfort COMPARISON: 07/24/2017 FINDINGS: LUNGS: No active pulmonary disease. PLEURA: No significant pleural effusion identified, no pneumothorax apparent. CARDIOVASCULAR: Normal. OSSEOUS STRUCTURES: No significant abnormalities. VISUALIZED UPPER ABDOMEN: Normal. OTHER FINDINGS: None. IMPRESSION: No active disease. No significant interval change compared to the prior examination(s).
--- NOTE | 2017-08-06 12:48 | CARD ---
APPROVED REPORT EKG Measurement Heart [id number] <Conclusion> Normal sinus rhythm Normal ECG
== END 2017-08-06 01:40 | disposition home or self-care (01) ==
LOC: ED 23:27
DX: K21.0 Gastro-esophageal reflux disease with esophagitis (principal); I10 Essential (primary) hypertension; E11.9 Type 2 diabetes mellitus without complications
CPT/HCPCS: 71045; 80053; 81001; 82550; 83615; 83690; 83735; 84484; 85025; 85610; 85730; 87086; 93005; 96374; 99283; C9113

== ENCOUNTER 2017-12-10 00:32 | Emergency (ER) | payer MEDICARE, OTHER ==
[2017-12-10 00:47] VITALS: O2SAT 100; BMI 50.1
[2017-12-10] MEDS ORDERED: DiphenhydrAMINE 50 mg/ml Inj IVP STA (00:49)
[2017-12-10] MEDS ORDERED: Sodium Chloride 0.9% 500 ML IV STA (00:50)
--- NOTE | 2017-12-10 00:50 | ED PDOC ---
Arrival/HPI - General Historian: Patient - History of Present Illness Narrative History of Present Illness (Text): 12/10/17 00:47 37 y/o female, pmh including migraine and asthma, nkda, c/o migraine headache started yesterday. Pt. stated that she woke up with the rt. sided unilateral headache, throbbing sensation, aggravated by loud sound and bright light, no change in vision, no numbness or tingling, no neck stiffness, no rash, no chest pain or shortness of breath, no other medical or psychological complaints. <Daniel Moura - Last Filed: 12/10/17 01:54> <Carlos Handley - Last Filed: 12/10/17 03:15> - General Time Seen by Provider: 12/10/17 00:46 Past Medical History - Provider Review Nursing Documentation Reviewed: Yes - Infectious Disease Hx of Infectious Diseases: None - Tetanus Immunization Tetanus Immunization: Unknown - Cardiac Hx Hypertension: Yes - Pulmonary Hx Asthma: Yes - Neurological Hx Migraine: Yes - HEENT Hx HEENT Disorder: No - Renal Hx Renal Disorder: No - Endocrine/Metabolic Hx Endocrine Disorders: Yes Hx Diabetes Mellitus Type 2: Yes - Hematological/Oncological Hx Blood Disorders: No - Integumentary Hx Dermatological Disorder: No - Musculoskeletal/Rheumatological Hx Musculoskeletal Disorders: Yes Hx Back Pain: Yes Hx Herniated Disk: Yes Other/Comment: HEEL SPURS - Gastrointestinal Hx Gastrointestinal Disorders: No - Genitourinary/Gynecological Hx Genitourinary Disorders: No - Psychiatric Hx Depression: No Hx Substance Use: Yes - Surgical History Hx Section: Yes Hx Dilation and Curettage: Yes Hx Musculoskeletal Surgery: Yes (back) Hx Tubal Ligation: Yes Other/Comment: Back surgery, 04/2013, 1 , 5 miscarriages - Anesthesia Hx Anesthesia: Yes - Suicidal Assessment Feels Threatened In Home Enviroment: No <Daniel Moura - Last Filed: 12/10/17 01:54> Family/Social History - Physician Review Nursing Documentation Reviewed: Yes Family/Social History: Unknown Family HX Smoking Status: Never Smoked Hx Alcohol Use: Yes Hx Substance Use: Yes Substance used: marijuana Hx Substance Use Treatment: No <Daniel Moura - Last Filed: 12/10/17 01:54> Allergies/Home Meds <Daniel Moura - Last Filed: 12/10/17 01:54> <Carlos Handley - Last Filed: 12/10/17 03:15> Allergies/Adverse Reactions: Allergies cat dander Allergy (Mild, Verified 12/10/17 00:42) ITCHING dog dander Allergy (Mild, Verified 12/10/17 00:42) ITCHING shellfish derived Allergy (Verified 12/10/17 00:42) ANAPHYLAXIS shrimp Allergy (Verified 12/10/17 00:42) ANAPHYLAXIS Review of Systems - Review of Systems Constitutional: absent: Fatigue, Fevers Eyes: absent: Vision Changes ENT: absent: Hearing Changes Respiratory: absent: SOB, Cough Cardiovascular: absent: Chest Pain Gastrointestinal: absent: Abdominal Pain, Diarrhea, Nausea, Vomiting Skin: absent: Rash, Pruritis Neurological: Headache. absent: Dizziness, Focal Weakness Psychiatric: absent: Anxiety, Depression, Suicidal Ideation <MouraDaniel Harding - Last Filed: 12/10/17 01:54> Physical Exam Vital Signs Temp Pulse Resp BP Pulse Ox 12/10/17 00:43 98.5 F 80 18 146/82 100 Temperature: Afebrile Blood Pressure: Normal Pulse: Regular Respiratory Rate: Normal Appearance: Positive for: Well-Appearing, Non-Toxic Pain Distress: Moderate Mental Status: Positive for: Alert and Oriented X 3 - Systems Exam Head: Present: Atraumatic, Normocephalic, Other (no temporal artery tenderness). No: Tenderness, Contusion, Swelling, Ecchymosis, Abrasion, Laceration Pupils: Present: PERRL Extroacular Muscles: Present: EOMI Conjunctiva: Present: Normal Ears: Present: NORMAL TM, Normal Canal. No: Erythema Mouth: Present: Moist Mucous Membranes Nose (External): Present: Atraumatic. No: Abrasion, Contusion, Laceration Nose (Internal): Present: Normal Inspection, No Active Bleeding. No: Rhinorrhea, Septal Hematoma, Epistaxis, Other Neck: Present: Normal Range of Motion, Trachea Midline. No: Meningeal Signs, MIDLINE TENDERNESS, Paraspinal Tenderness, Lymphadenopathy Respiratory/Chest: Present: Clear to Auscultation, Good Air Exchange. No: Respiratory Distress, Accessory Muscle Use Cardiovascular: Present: Regular Rate and Rhythm, Normal S1, S2. No: Murmurs Abdomen: No: Tenderness, Distention, Peritoneal Signs, Rebound, Guarding Back: Present: Normal Inspection Upper Extremity: Present: Normal Inspection, Normal ROM, NORMAL PULSES, Neurovascularly Intact, Capillary Refill < 2s, Norm 2-Pt Discrimination. No: Cyanosis, Edema, Tenderness, Swelling, Erythema, Temperature Abnormalties, Deformity Lower Extremity: Present: Normal Inspection, NORMAL PULSES, Normal ROM, Neurovascularly Intact, Capillary Refill < 2 s. No: Edema, CALF TENDERNESS, Tenderness, Swelling, Deformity Neurological: Present: GCS=15, CN II-XII Intact, Speech Normal, Motor Func Grossly Intact, Gait Normal, Memory Normal Skin: Present: Warm, Dry, Normal Color. No: Rashes Psychiatric: Present: Alert, Oriented x 3, Normal Insight, Normal Concentration <Daniel Moura - Last Filed: 12/10/17 01:54> Vital Signs Temp Pulse Resp BP Pulse Ox 12/10/17 00:43 98.5 F 80 18 146/82 100 <Carlos Handley - Last Filed: 12/10/17 03:15> Medical Decision Making ED Course and Treatment: 12/10/17 00:52 -Urine hcg -Labs -Physical exam are unremarkable including the bilateral upper and lower extremities with no tenderness or swelling, no signs of trauma. -IV toradol/reglan/benadryl -Observe and reassess 12/10/17 01:50 -Urine hcg is negative. -Labs are non-significant. -Pt. feeling much better, headache resolved, no focal neurological deficits, all labs and radiology results discussed, request to be discharged home. -Discharge home with education on follow up with your own pmd and neurologist within 2 days, return to the ER for any new or worsening signs or symptoms. <Daniel Moura - Last Filed: 12/10/17 01:54> - Lab Interpretations Lab Results: 12/10/17 01:05 12/10/17 01:05 Lab Results 12/10/17 01:05: WBC 5.1 D, RBC 4.56, Hgb 10.4 L, Hct 33.8 L, MCV 74.1 L, MCH 22.8 L, MCHC 30.8 L, RDW 17.1 H, Plt Count 433, MPV 10.0, Gran % 52.0, Lymph % (Auto) 36.0 H, [place] % (Auto) 7.7 H, Eos % (Auto) 3.9, Baso % (Auto) 0.4, Gran # 2.64, Lymph # (Auto) 1.8, [place] # (Auto) 0.4, Eos # (Auto) 0.2, Baso # (Auto) 0.02 12/10/17 01:05: Sodium 141, Potassium 3.9, Chloride 107, Carbon Dioxide 26, Anion Gap 12, BUN 13, Creatinine 0.8, Est GFR ( Amer) > 60, Est GFR (Non- Af Amer) > 60, Random Glucose 115 H, Calcium 9.4, Total Bilirubin 0.4, AST 23, ALT 32, Alkaline Phosphatase 55, Total Protein 8.0, Albumin 4.1, Globulin 3.9, Albumin/Globulin Ratio 1.1 - Medication Orders Current Medication Orders: Discontinued Medications Diphenhydramine HCl (Benadryl) 25 mg IVP STAT STA Stop: 12/10/17 00:50 Last Admin: 12/10/17 01:12 Dose: 25 mg IVP Administration Document 12/10/17 01:12 IT (Rec: 12/10/17 01:13 IT [id number]) Charges for Administration # of IVP Administrations 1 Sodium Chloride (Sodium Chloride 0.9%) 500 mls @ 999 mls/hr IV .Q31M STA Stop: 12/10/17 01:20 Last Admin: 12/10/17 01:13 Dose: 999 mls/hr eMAR Start Stop Document 12/10/17 01:13 IT (Rec: 12/10/17 01:13 IT [id number]) Intravenous Solution Start Date 12/10/17 Start Time 01:13 Ketorolac Tromethamine (Toradol) 30 mg IVP STAT STA Stop: 12/10/17 00:50 Last Admin: 12/10/17 01:12 Dose: 30 mg MAR Pain Assessment Document 12/10/17 01:12 IT (Rec: 12/10/17 01:12 IT [id number]) Pain Reassessment Is this a pain reassessment? No IVP Administration Document 12/10/17 01:12 IT (Rec: 12/10/17 01:12 IT [id number]) Charges for Administration # of IVP Administrations 1 Metoclopramide HCl (Reglan) 10 mg IVP STAT STA Stop: 12/10/17 00:50 Last Admin: 12/10/17 01:13 Dose: 10 mg IVP Administration Document 12/10/17 01:13 IT (Rec: 12/10/17 01:13 IT [id number]) Charges for Administration # of IVP Administrations 1 <Carlos Handley - Last Filed: 12/10/17 03:15> - PA / ELEMENTARY SCHOOL SCIENCE TEACHER / Resident Statement FREDDIE has reviewed & agrees with the documentation as recorded. <Daniel Moura - Last Filed: 12/10/17 01:54> - PA / ELEMENTARY SCHOOL SCIENCE TEACHER / Resident Statement FREDDIE has reviewed & agrees with the documentation as recorded. <EmmanuelleCarlos - Last Filed: 12/10/17 03:15> Disposition/Present on Arrival - Present on Arrival Any Indicators Present on Arrival: No History of DVT/PE: No History of Uncontrolled Diabetes: No Urinary Catheter: No History of Decub. Ulcer: No History Surgical Site Infection Following: None - Disposition Have Diagnosis and Disposition been Completed?: Yes Disposition Time: 01:36 Patient Plan: Discharge <Daniel Moura - Last Filed: 12/10/17 01:54> <EmmanuelleCarlos - Last Filed: 12/10/17 03:15> - Disposition Diagnosis: Headache Disposition: HOME/ ROUTINE Condition: IMPROVED Additional Instructions: -Discharge home with education on follow up with your own pmd within 2 days, return to the ER for any new or worsening signs or symptoms. Prescriptions: RX: Acetaminophen [Tylenol Extra Strength] 500 mg PO QID PRN #30 tablet PRN Reason: Other Referrals: James Fallon DO [Primary Care Provider] - Follow up with primary Yoon Colin MD [Staff Provider] - Follow up with primary Forms: WORK NOTE
[2017-12-10 01:18] LABS: BASO # 0.02 K/mm3 (0.0-2.0); BASO % 0.4 % (0.0-3.0); EOS # 0.2 (0.0-0.7); EOS % 3.9 % (1.5-5.0); GRAN # 2.64 (1.4-6.5); HEMOGLOBIN 10.4 g/dL (12.0-16.0); LYMPH # 1.8 (1.2-3.4); MEAN CELL VOLUME 74.1 fl (80.0-105.0); MEAN CORPUSCULAR HEMOGLOBIN 22.8 pg (25.0-35.0); MEAN CORPUSCULAR HGB CONC 30.8 g/dl (31.0-37.0); MONO # 0.4 (0.1-0.6); MONO % 7.7 % (1.0-6.0); RBC 4.56 10^6/uL (3.5-6.1); RED CELL DISTRIBUTION WIDTH 17.1 % (11.5-14.5); WHITE BLOOD COUNT 5.1 10^3/ul (4.5-11.0)
[2017-12-10 01:24] LABS: ALB/GLOB RATIO 1.1 (1.1-1.8); ALBUMIN 4.1 g/dL (3.0-4.8); ALT/SGPT 32 U/L (7-56); AST/SGOT 23 U/L (14-36); BLOOD UREA NITROGEN 13 mg/dL (7-21); CALCIUM 9.4 mg/dL (8.4-10.5); GFR NON-AFRICAN AMERICAN > 60
[2017-12-10 02:15] VITALS: BP 138/77; PULSE 82; RESP 17; TEMP 98.2
== END 2017-12-10 02:15 | disposition home or self-care (01) ==
LOC: ED 00:32
DX: R51 Headache (principal); E11.9 Type 2 diabetes mellitus without complications; I10 Essential (primary) hypertension
CPT/HCPCS: 80053; 85025; 96374; 96375; 99285; J1200; J1885; J2765; J7040

== ENCOUNTER 2018-01-26 16:46 | Emergency (ER) | payer MEDICARE, OTHER ==
[2018-01-26 16:47] VITALS: BMI 50.1
[2018-01-26 16:52] VITALS: RESP 18; TEMP 98.4
--- NOTE | 2018-01-26 16:57 | ED PDOC ---
Arrival/HPI - General Historian: Patient - History of Present Illness Narrative History of Present Illness (Text): 01/26/18 16:52 37 y/o female, pmh inculding coccyceal fracture/migraine headache/chronic sinusitis with allergic rhinitis for years, nkda, c/o forehead painful skin lesion x 3-4 days with no fall or trauma. Pt. stated that it started off as little pimple, been putting make up on it for the past 2-3 days which it causes to growing even more which she tried to squeezed it, stated that also has headache today, no fever or chills, no night sweat, no rash, no painful movement of the eye, no dizziness, no palpitation, no other medical or psychological complaints. Past Medical History - Provider Review Nursing Documentation Reviewed: Yes - Infectious Disease Hx of Infectious Diseases: None - Tetanus Immunization Tetanus Immunization: Unknown - Cardiac Hx Hypertension: Yes - Pulmonary Hx Asthma: Yes - Neurological Hx Migraine: Yes - HEENT Hx HEENT Disorder: No - Renal Hx Renal Disorder: No - Endocrine/Metabolic Hx Endocrine Disorders: Yes Hx Diabetes Mellitus Type 2: Yes - Hematological/Oncological Hx Blood Disorders: No - Integumentary Hx Dermatological Disorder: No - Musculoskeletal/Rheumatological Hx Musculoskeletal Disorders: Yes Hx Back Pain: Yes Hx Herniated Disk: Yes Other/Comment: HEEL SPURS - Gastrointestinal Hx Gastrointestinal Disorders: No - Genitourinary/Gynecological Hx Genitourinary Disorders: No - Psychiatric Hx Depression: No Hx Substance Use: Yes - Surgical History Hx Section: Yes Hx Dilation and Curettage: Yes Hx Musculoskeletal Surgery: Yes (back) Hx Tubal Ligation: Yes Other/Comment: Back surgery, 04/2013, 1 , 5 miscarriages - Anesthesia Hx Anesthesia: Yes - Suicidal Assessment Feels Threatened In Home Enviroment: No Family/Social History - Physician Review Nursing Documentation Reviewed: Yes Family/Social History: Unknown Family HX Smoking Status: Never Smoked Hx Alcohol Use: Yes Hx Substance Use: Yes Substance used: marijuana Hx Substance Use Treatment: No Allergies/Home Meds Allergies/Adverse Reactions: Allergies cat dander Allergy (Mild, Verified 01/26/18 16:58) ITCHING dog dander Allergy (Mild, Verified 01/26/18 16:58) ITCHING shellfish derived Allergy (Verified 01/26/18 16:58) ANAPHYLAXIS shrimp Allergy (Verified 01/26/18 16:58) ANAPHYLAXIS Review of Systems - Review of Systems Constitutional: absent: Fatigue, Fevers Eyes: absent: Vision Changes ENT: Rhinorrhea, Other (+salute sign). absent: Hearing Changes Respiratory: absent: SOB, Cough Cardiovascular: absent: Chest Pain Gastrointestinal: absent: Abdominal Pain, Nausea, Vomiting Musculoskeletal: absent: Arthralgias Skin: Skin Lesions, Abscess. absent: Rash, Pruritis, Laceration, Ulcer, Cellulitis Neurological: Headache. absent: Dizziness Psychiatric: absent: Anxiety, Depression, Suicidal Ideation Physical Exam Vital Signs Reviewed: Yes Vital Signs Temp Pulse Resp BP Pulse Ox 01/26/18 16:51 98.4 F 95 H 18 155/87 H 99 Temperature: Afebrile Blood Pressure: Hypertensive Pulse: Regular Respiratory Rate: Normal Appearance: Positive for: Well-Appearing, Non-Toxic, Comfortable Pain Distress: Moderate Mental Status: Positive for: Alert and Oriented X 3 - Systems Exam Head: Present: Atraumatic, Normocephalic, Other (frontal forehead between the eyebrow noted to have 3cmx1.5cm with mild fluctuant noted, no streaking or ulcers. ). No: Tenderness, Contusion, Swelling, Ecchymosis, Abrasion, Laceration Pupils: Present: PERRL Extroacular Muscles: Present: EOMI, Other (no periorbital swelling. ). No: Gaze Palsy, Entrapment Conjunctiva: Present: Normal Ears: Present: NORMAL TM, Normal Canal. No: Erythema Mouth: Present: Moist Mucous Membranes Nose (External): Present: Atraumatic. No: Abrasion, Contusion, Laceration, Lesions Nose (Internal): Present: Normal Inspection, No Active Bleeding. No: Rhinorrhea, Septal Deviation, Septal Hematoma, Epistaxis Neck: Present: Normal Range of Motion, Trachea Midline. No: Meningeal Signs, MIDLINE TENDERNESS, Paraspinal Tenderness, Lymphadenopathy Respiratory/Chest: Present: Clear to Auscultation, Good Air Exchange. No: Respiratory Distress, Accessory Muscle Use Cardiovascular: Present: Regular Rate and Rhythm, Normal S1, S2. No: Murmurs Abdomen: Present: Normal Bowel Sounds. No: Tenderness, Distention, Peritoneal Signs, Rebound, Guarding Back: Present: Normal Inspection Upper Extremity: Present: Normal Inspection, Normal ROM, NORMAL PULSES. No: Cyanosis, Edema Lower Extremity: Present: Normal Inspection. No: Edema Neurological: Present: GCS=15, CN II-XII Intact, Speech Normal, Motor Func Grossly Intact, Normal Cerebellar Funct, Gait Normal, Memory Normal Skin: Present: Warm, Dry, Normal Color. No: Rashes Psychiatric: Present: Alert, Oriented x 3, Normal Insight, Normal Concentration Medical Decision Making ED Course and Treatment: 01/26/18 17:19 -Labs -CT -IV reglan/toradol/zosyn -Observe and reassess 01/26/18 18:30 Procedure: Incision & Drainage Performed by the emergency provider Indication: Abscess Location: frontal forehead (pt. awared that we have no plastic surgeon and request ER staff to do the I&D) Preparation: The area was prepped and draped in the usual sterile fashion and was cleansed with normal saline, betadine, sterile procedure, local infiltration of Lidocaine 1% 0.5cc was used for anesthesia. Procedure: The most fluctuant portion of the abscess was incised with a #11 scalpel. Approximately 1 mL of purulant was obtained, cystic sag remove completely. The abscess was packed 1/4" iodofoam packing. A dressing was applied by the RN Claudy Post-Procedure: On exam the abscess is notably less fluctuant. The patient tolerated the procedure well, and there were no complications. 01/26/18 19:23 -Urine hcg is negative. -CT Head No acute intracranial abnormalities. No significant findings to account for the clinical presentation. -CT orbital/facial: oft tissue swelling and laceration involving the soft tissues at the bridge of the nose. No distinct mass or fluid collection or abscess identified. Inflammatory changes paranasal sinuses. Close clinical correlation is advised. -CT results discussed with current ER attending Dr. Tom, he recommend outpatient pmd/ENT follow up. -Labs are non-significant except chronic anemia. -Pt. is asymptomatic, no focal neurological deficits, no pain now. -Discharge home with augmentin, bactrim ds, motrin, return to the ER in 2 days for wound check and packing change, follow up with your own pmd and general surgeon/ENT within 2 days, return to the ER for any new or worsening signs or symptoms. - RAD Interpretation Radiology Orders: -CT Head Date of service: 01/26/2018 PROCEDURE: CT HEAD WITHOUT CONTRAST. HISTORY: headache COMPARISON: None available. TECHNIQUE: Axial computed tomography images were obtained through the head/brain without intravenous contrast. Supplemental Coronal and Sagittal projections created and reviewed. Radiation dose: Total exam DLP = 1507.16 mGy-cm. This CT exam was performed using one or more of the following dose reduction techniques: Automated exposure control, adjustment of the mA and/or kV according to patient size, and/or use of iterative reconstruction technique. FINDINGS: HEMORRHAGE: No intracranial hemorrhage. BRAIN: No mass effect or edema. No atrophy or chronic microvascular ischemic changes. VENTRICLES: Unremarkable. No hydrocephalus. CALVARIUM: Unremarkable. PARANASAL SINUSES: Unremarkable as visualized. No significant inflammatory changes. MASTOID AIR CELLS: Unremarkable as visualized. No inflammatory changes. OTHER FINDINGS: None. IMPRESSION: No acute intracranial abnormalities. No significant findings to account for the clinical presentation. ----- -CT orbital/facial: FINDINGS: BONES: No acute fracture or aggressive appearing osseous lesion. The mandible is intact. SOFT TISSUES: There is soft tissue swelling and a laceration within the soft tissues at the bridge of the nose. There is no distinctive mass or fluid collection or abscess identified. SINUSES: Inflammatory changes are suspected within the ethmoid sinuses as well as the right maxillary sinus with occlusion of the right ostiomeatal complex. . ORBITS: The orbits are normal. No retrobulbar hematoma or mass. IMPRESSION: Soft tissue swelling and laceration involving the soft tissues at the bridge of the nose. No distinct mass or fluid collection or abscess i dentified. Inflammatory changes paranasal sinuses. Close clinical correlation is advised. Electronically signed on Jan 26, 2018 7:13:47 PM EST by: Michael Nelson M.D., Certified by [employer], Diagnostic Radiology [employer]: ED Physician, Radiologist - PA / TIME STUDY OBSERVER / Resident Statement MD/DO has reviewed & agrees with the documentation as recorded. Disposition/Present on Arrival - Present on Arrival Any Indicators Present on Arrival: No History of DVT/PE: No History of Uncontrolled Diabetes: No Urinary Catheter: No History of Decub. Ulcer: No History Surgical Site Infection Following: None - Disposition Have Diagnosis and Disposition been Completed?: Yes Diagnosis: Facial abscess, Headache, Sinusitis Disposition: HOME/ ROUTINE Disposition Time: 19:24 Patient Plan: Discharge Patient Problems: Current Active Problems Problem Status Onset Headache Acute Facial abscess Acute Condition: IMPROVED Additional Instructions: -Discharge home with augmentin, bactrim ds, motrin, return to the ER in 2 days for wound check and packing change, follow up with your own pmd and general surgeon/ENT within 2 days, return to the ER for any new or worsening signs or symptoms. Prescriptions: Amoxicillin/Clavulanate [Augmentin 875 MG-125 MG] 1 tab PO BID #20 tab Ibuprofen [Motrin Tab] 600 mg PO QID PRN #30 tab PRN Reason: Other Loratadine [Claritin] 10 mg PO DAILY #10 tab Sulfamethoxazole/Trimethoprim [Bactrim DS 800 mg-160 mg] 1 tab PO BID #20 tab Referrals: [facility] [place] [Outside] - Follow up with primary Yoon Colin MD [Staff Provider] - Follow up with primary Keny Otoole MD [Staff Provider] - Follow up with primary Ferdinand Thompson DO [Staff Provider] - Follow up with primary Forms: WORK NOTE
[2018-01-26] MEDS ORDERED: Lidocaine 1% Inj (20ml) IJ STA (17:09)
[2018-01-26] MEDS ORDERED: Sodium Chloride 0.9% 1,000 ML IV STA (17:12)
[2018-01-26] MEDS ORDERED: Piperacillin/Tazobact 3.375 gm 100 ML IVPB STA (17:15)
[2018-01-26 18:07] LABS: BASO # 0.02 K/mm3 (0.0-2.0); BASO % 0.3 % (0.0-3.0); EOS # 0.3 (0.0-0.7); EOS % 4.8 % (1.5-5.0); GRAN # 3.36 (1.4-6.5); GRAN % 48.4 % (50.0-68.0); HEMOGLOBIN 10.1 g/dL (12.0-16.0); LYMPH # 2.7 (1.2-3.4); MEAN CELL VOLUME 75.7 fl (80.0-105.0); MEAN CORPUSCULAR HEMOGLOBIN 23.2 pg (25.0-35.0); MEAN CORPUSCULAR HGB CONC 30.6 g/dl (31.0-37.0); MEAN PLATELET VOLUME 10.5 fl (7.0-11.0); MONO # 0.5 (0.1-0.6); MONO % 7.5 % (1.0-6.0); RBC 4.36 10^6/uL (3.5-6.1); RED CELL DISTRIBUTION WIDTH 17.2 % (11.5-14.5); WHITE BLOOD COUNT 6.9 10^3/uL (4.5-11.0)
[2018-01-26] MEDS ORDERED: Iohexol 350 MG/100 ML VIAL ONE (18:08)
[2018-01-26 18:20] LABS: ALBUMIN 3.7 g/dL (3.0-4.8); ALT/SGPT 31 U/L (7-56); AST/SGOT 23 U/L (14-36); BLOOD UREA NITROGEN 14 mg/dL (7-21); CALCIUM 8.5 mg/dL (8.4-10.5); GFR NON-AFRICAN AMERICAN > 60
[2018-01-26] MEDS ORDERED: Potassium Chloride 20 mEq ER Tab PO STA (18:29)
--- NOTE | 2018-01-26 18:55 | CT ---
Date of service: 01/26/2018 PROCEDURE: CT HEAD WITHOUT CONTRAST. HISTORY: headache COMPARISON: None available. TECHNIQUE: Axial computed tomography images were obtained through the head/brain without intravenous contrast. Supplemental Coronal and Sagittal projections created and reviewed. Radiation dose: Total exam DLP = 1507.16 mGy-cm. This CT exam was performed using one or more of the following dose reduction techniques: Automated exposure control, adjustment of the mA and/or kV according to patient size, and/or use of iterative reconstruction technique. FINDINGS: HEMORRHAGE: No intracranial hemorrhage. BRAIN: No mass effect or edema. No atrophy or chronic microvascular ischemic changes. VENTRICLES: Unremarkable. No hydrocephalus. CALVARIUM: Unremarkable. PARANASAL SINUSES: Unremarkable as visualized. No significant inflammatory changes. MASTOID AIR CELLS: Unremarkable as visualized. No inflammatory changes. OTHER FINDINGS: None. IMPRESSION: No acute intracranial abnormalities. No significant findings to account for the clinical presentation.
[2018-01-26 19:28] VITALS: BP 148/74
[2018-01-26 19:32] VITALS: PULSE 84; O2SAT 100
--- NOTE | 2018-01-27 10:22 | CT ---
Date of service: 01/26/2018 PROCEDURE: CT MAXILLOFACIAL BONES WITH CONTRAST HISTORY: forehead swelling/abscess, post septal cellulitis? COMPARISON: None. TECHNIQUE: Contiguous axial CT images of the maxillofacial bones were obtained following administration of IV contrast. Coronal and sagittal reformats were generated. Intravenous contrast Dose: 100 cc of Omni 350 Radiation dose: Total exam DLP = 860.04 mGy-cm. This CT exam was performed using one or more of the following dose reduction techniques: Automated exposure control, adjustment of the mA and/or kV according to patient size, and/or use of iterative reconstruction technique. FINDINGS: NASAL BONES: There is a small laceration and soft tissue swelling over the bridge of the nose. There is no evidence of abscess ORBITS: Unremarkable. PARANASAL SINUSES/ MASTOIDS: Clear. MAXILLA: Unremarkable. MANDIBLE/ TEMPOROMANDIBULAR JOINTS: Unremarkable. SKULL BASE: Unremarkable. TEMPORAL BONES: Middle ears and mastoid grossly unremarkable. OTHER FINDINGS: None. IMPRESSION: There is a small laceration and soft tissue swelling over the bridge of the nose. There is no evidence of abscess
== END 2018-01-26 19:41 | disposition home or self-care (01) ==
LOC: ED 16:46
DX: L02.01 Cutaneous abscess of face (principal); R51 Headache; J32.9 Chronic sinusitis, unspecified; I10 Essential (primary) hypertension; E11.9 Type 2 diabetes mellitus without complications
CPT/HCPCS: 10060; 70450; 70488; 80053; 85025; 96361; 96365; 96375; 99283; J1885; J2543; J2765; J7030; Q9967

== ENCOUNTER 2018-01-28 18:12 | Emergency (ER) | payer MEDICARE, OTHER ==
[2018-01-28 18:14] VITALS: BMI 49.3
[2018-01-28 18:20] VITALS: BP 142/85; PULSE 87; RESP 20; TEMP 98; O2SAT 99
--- NOTE | 2018-01-28 18:36 | ED PDOC ---
Arrival/HPI - General Chief Complaint: Wound Check Time Seen by Provider: 01/28/18 18:19 Historian: Patient - History of Present Illness Narrative History of Present Illness (Text): 01/28/18 18:32 37-year-old female presents today for wound check. Patient states she was seen in the emergency room 2 days ago and had incision and drainage of an abscess to the forehead. Patient states the packing fell out which she wanted to come into the emergency room for wound check as she was advised to do. Patient states she hasn't been unable to fill her antibiotics. She still complaining of pain to the forehead. Denies fevers or chills. No medications have been taken at home. Patient denies dizziness but is complaining of frontal headache. Past Medical History - Provider Review Nursing Documentation Reviewed: Yes - Travel History Have you recently traveled outside [place] w/in the past 3 mons?: No - Infectious Disease Hx of Infectious Diseases: None - Tetanus Immunization Tetanus Immunization: Unknown - Cardiac Hx Hypertension: Yes - Pulmonary Hx Asthma: Yes - Neurological Hx Migraine: Yes - HEENT Hx HEENT Disorder: No - Renal Hx Renal Disorder: No - Endocrine/Metabolic Hx Endocrine Disorders: Yes Hx Diabetes Mellitus Type 2: Yes - Hematological/Oncological Hx Blood Disorders: No - Integumentary Hx Dermatological Disorder: No - Musculoskeletal/Rheumatological Hx Musculoskeletal Disorders: Yes Hx Back Pain: Yes Hx Herniated Disk: Yes Other/Comment: HEEL SPURS - Gastrointestinal Hx Gastrointestinal Disorders: No - Genitourinary/Gynecological Hx Genitourinary Disorders: No - Psychiatric Hx Depression: No Hx Substance Use: Yes - Surgical History Hx Section: Yes Hx Dilation and Curettage: Yes Hx Musculoskeletal Surgery: Yes (back) Hx Tubal Ligation: Yes Other/Comment: Back surgery, 04/2013, 1 , 5 miscarriages - Anesthesia Hx Anesthesia: Yes Hx Anesthesia Reactions: No Hx Malignant Hyperthermia: No - Suicidal Assessment Feels Threatened In Home Enviroment: No Family/Social History - Physician Review Nursing Documentation Reviewed: Yes Family/Social History: Unknown Family HX Smoking Status: Never Smoked Hx Alcohol Use: Yes Hx Substance Use: Yes Substance used: marijuana Hx Substance Use Treatment: No Allergies/Home Meds Allergies/Adverse Reactions: Allergies cat dander Allergy (Mild, Verified 01/26/18 16:58) ITCHING dog dander Allergy (Mild, Verified 01/26/18 16:58) ITCHING shellfish derived Allergy (Verified 01/26/18 16:58) ANAPHYLAXIS shrimp Allergy (Verified 01/26/18 16:58) ANAPHYLAXIS Review of Systems - Review of Systems Constitutional: absent: Fatigue, Fevers Respiratory: absent: SOB, Cough Cardiovascular: absent: Chest Pain, Palpitations Gastrointestinal: absent: Abdominal Pain, Vomiting Skin: Abscess Neurological: Headache. absent: Dizziness Psychiatric: absent: Anxiety, Depression Physical Exam Vital Signs Reviewed: Yes Vital Signs Temp Pulse Resp BP Pulse Ox 01/28/18 18:13 98 F 87 20 142/85 99 Temperature: Afebrile Blood Pressure: Normal Pulse: Regular Respiratory Rate: Normal Appearance: Positive for: Well-Appearing, Non-Toxic, Comfortable Pain Distress: None Mental Status: Positive for: Alert and Oriented X 3 - Systems Exam Head: Present: Tenderness, Other (there is a 0.5cm vertical wound noted over the forehead at the glabella. minimal induration. no erythema; no packing noted. no purulent discharge noted. minimal tenderness at site. ) Mouth: Present: Moist Mucous Membranes Neck: Present: Normal Range of Motion Respiratory/Chest: Present: Clear to Auscultation, Good Air Exchange. No: Respiratory Distress, Accessory Muscle Use Cardiovascular: Present: Regular Rate and Rhythm, Normal S1, S2. No: Murmurs Skin: Present: Warm, Dry Psychiatric: Present: Alert, Oriented x 3 Medical Decision Making ED Course and Treatment: 01/28/18 18:36 Patient is nontoxic well-appearing in no distress. Vital signs are stable. wound healing well; no purulent discharge; no surrounding erythema; bacitracin and dressing applied. pt states she has not filled her Rx for abx. will give dose in Er. Patient was advised to use warm compresses and take abx as prescribed. pt was advised to f/u with plastic surgeon. pt was advised to return immediately if symptoms worsen persist or if new symptoms develop Patient verbalizes understanding of discharge instructions and need for immediate followup. Impression: wound check, abscess continue antibiotics as prescribed on previous visit. Warm compresses frequently Follow up with the plastic surgeon within the next 2 days. Return immediately if symptoms worsen persist or if new symptoms develop: High fevers, increasing pain, increasing redness, swelling or if any other concerning symptoms develop. Disposition/Present on Arrival - Present on Arrival Any Indicators Present on Arrival: No History of DVT/PE: No History of Uncontrolled Diabetes: No Urinary Catheter: No History of Decub. Ulcer: No History Surgical Site Infection Following: None - Disposition Have Diagnosis and Disposition been Completed?: Yes Diagnosis: Wound check, abscess Disposition: HOME/ ROUTINE Disposition Time: 18:38 Patient Plan: Discharge Condition: GOOD Discharge Instructions (ExitCare): Boil Additional Instructions: continue antibiotics as prescribed on previous visit. Warm compresses frequently Follow up with the plastic surgeon within the next 2 days. Return immediately if symptoms worsen persist or if new symptoms develop: High fevers, increasing pain, increasing redness, swelling or if any other concerning symptoms develop. Referrals: Shi Dunaway MD [Staff Provider] - Follow up with primary Agusto Reid MD [Staff Provider] - Follow up with primary Arleth Chen MD [Medical Doctor] - Follow up with primary [facility] [Outside] - Follow up with primary [facility] [place] - Follow up with primary Forms: [employer] (Irish), WORK NOTE
[2018-01-28] MEDS ORDERED: Bacitracin 500 Units/gm Oint Foilpak UD ONE (18:39)
[2018-01-28] MEDS ORDERED: Tmp-Smz 800 mg-160 mg DS Tab PO STA (18:41)
== END 2018-01-28 19:00 | disposition home or self-care (01) ==
LOC: ED 18:12
DX: Z51.89 Encounter for other specified aftercare (principal)

== ENCOUNTER 2018-03-20 15:47 | Emergency (ER) | payer MEDICARE, OTHER ==
[2018-03-20 15:56] VITALS: BMI 50.1
[2018-03-20 16:00] VITALS: RESP 18
--- NOTE | 2018-03-20 16:43 | ED PDOC ---
Arrival/HPI - General Chief Complaint: Cough, Cold, Congestion Time Seen by Provider: 03/20/18 16:15 Historian: Patient - History of Present Illness Narrative History of Present Illness (Text): 03/20/18 16:43 37 year old female, with past medical history of asthma, presents to the Emergency department for evaluation of cough since past 2 weeks. Patient informs recent sick contact with daughter, who presented similar symptoms. Patient states mild urinary incontinence when coughing but denies any other urinary complaints. Patient informs back pain radiating to bilateral ribs secondary to cough. Patient informs taking Mucinex with no improvement to symptoms. Patient denies any other somatic complaints. Patient denies any fevers, chills, headache, dizziness, chest pain, shortness of breath, abdominal pain, nausea, vomiting, diarrhea, back pain, neck pain, or any other complaints. Time/Duration: > week Symptom Onset: Gradual Symptom Course: Unchanged Activities at Onset: Light Context: Home Past Medical History - Provider Review Nursing Documentation Reviewed: Yes - Infectious Disease Hx of Infectious Diseases: None - Tetanus Immunization Tetanus Immunization: Unknown - Reproductive Currently : Unknown - Cardiac Hx Hypertension: Yes - Pulmonary Hx Asthma: Yes - Neurological Hx Migraine: Yes - HEENT Hx HEENT Disorder: No - Renal Hx Renal Disorder: No - Endocrine/Metabolic Hx Endocrine Disorders: Yes Hx Diabetes Mellitus Type 2: Yes - Hematological/Oncological Hx Blood Disorders: No - Integumentary Hx Dermatological Disorder: No - Musculoskeletal/Rheumatological Hx Musculoskeletal Disorders: Yes Hx Back Pain: Yes Hx Herniated Disk: Yes Other/Comment: HEEL SPURS - Gastrointestinal Hx Gastrointestinal Disorders: No - Genitourinary/Gynecological Hx Genitourinary Disorders: No - Psychiatric Hx Depression: No Hx Substance Use: Yes - Surgical History Hx Section: Yes Hx Dilation and Curettage: Yes Hx Musculoskeletal Surgery: Yes (back) Hx Tubal Ligation: Yes Other/Comment: Back surgery, 04/2013, 1 , 5 miscarriages - Anesthesia Hx Anesthesia: Yes Hx Anesthesia Reactions: No Hx Malignant Hyperthermia: No - Suicidal Assessment Feels Threatened In Home Enviroment: No Family/Social History - Physician Review Nursing Documentation Reviewed: Yes Family/Social History: No Known Family HX Smoking Status: Never Smoked Hx Alcohol Use: Yes Hx Substance Use: Yes Substance used: marijuana Hx Substance Use Treatment: No Allergies/Home Meds Allergies/Adverse Reactions: Allergies cat dander Allergy (Mild, Verified 01/26/18 16:58) ITCHING dog dander Allergy (Mild, Verified 01/26/18 16:58) ITCHING shellfish derived Allergy (Verified 01/26/18 16:58) ANAPHYLAXIS shrimp Allergy (Verified 01/26/18 16:58) ANAPHYLAXIS Review of Systems - Physician Review All systems were reviewed & negative as marked: Yes - Review of Systems Constitutional: absent: Fevers Respiratory: Cough. absent: SOB Cardiovascular: absent: Chest Pain Gastrointestinal: absent: Abdominal Pain, Diarrhea, Nausea, Vomiting Genitourinary Female: absent: Dysuria, Urine Output Changes Musculoskeletal: Back Pain. absent: Neck Pain Skin: absent: Rash Neurological: absent: Headache, Dizziness Psychiatric: absent: Anxiety Physical Exam - Physical Exam Narrative Physical Exam (Text): 03/20/18 16:46 Gen: VS reviewed, alert, well developed, well nourished, nontoxic, mild distress. ENT: normal pharynx. Post nasal drip. Eye: EOMI, PERRL. Neck: no JVD, supple, no adenopathy. CV: regular rate, regular rhythm, no rubs, no murmur, no gallops, S1, S2, pulses equal and strong. Pulm: no distress, clear to auscultation, no wheeze, no rhonchi, breath sounds equal, no rales. Abd: soft, nontender, no guarding, no rebound, no rigidity, normal bowel sounds. Ext: no edema. Skin: good color, no rash, no cyanosis. Psych: responds appropriately to questions, normal affect. Neuro: oriented x 3, CN2-12 intact grossly, motor intact, sensation intact. Vital Signs Reviewed: Yes Vital Signs Temp Pulse Resp BP Pulse Ox 03/20/18 15:59 98.7 F 97 H 18 121/71 99 Temperature: Afebrile Blood Pressure: Normal Pulse: Regular Respiratory Rate: Normal Appearance: Positive for: Well-Appearing, Non-Toxic, Comfortable Pain Distress: None Mental Status: Positive for: Alert and Oriented X 3 Medical Decision Making ED Course and Treatment: 03/20/18 16:47 Impression: 37 year old female presents to the ED for evaluation of cough. Plan: -- Chest X-ray -- Urinalysis -- Reassess and disposition Prior Visits: Notes and results from previous visits were reviewed. Progress Notes: 03/20/18 19:46 patient seen for cough with postnasal drip. cxr was done to rule out pneumonia. presentation consistent with patient's hx of allergic rhinitis. will tx with claritin/sudafed - RAD Interpretation Narrative RAD Interpretations (Text): 03/20/18 19:24 Chest X-ray reviewed by radiologist, shows no active disease. Radiology Orders: 03/20/18 16:34 CXR [CHEST TWO VIEWS (PA/LAT)] [RAD] Stat Shake Backboard Notcher: Radiologist - Scribe Statement The provider has reviewed the documentation as recorded by the Scribe Amena Triplett. All medical record entries made by the Scribe were at my direction and personally dictated by me. I have reviewed the chart and agree that the record accurately reflects my personal performance of the history, physical exam, medical decision making, and the department course for this patient. I have also personally directed, reviewed, and agree with the discharge instructions and disposition. Disposition/Present on Arrival - Present on Arrival Any Indicators Present on Arrival: No History of DVT/PE: No History of Uncontrolled Diabetes: No Urinary Catheter: No History of Decub. Ulcer: No History Surgical Site Infection Following: None - Disposition Have Diagnosis and Disposition been Completed?: Yes Diagnosis: Postnasal drip Disposition: HOME/ ROUTINE Disposition Time: 19:47 Patient Plan: Discharge Patient Problems: Current Active Problems Problem Status Onset Postnasal drip Acute Condition: STABLE Discharge Instructions (ExitCare): Seasonal Allergies (DC) Additional Instructions: try honey with tea for the cough. follow up with your primary care doctor. Prescriptions: Loratadine [Claritin] 10 mg PO DAILY 14 Days #14 tab Pseudoephedrine HCl [Sudafed] 30 mg PO QID 5 Days #20 tablet Referrals: [facility] [Outside] - Follow up with primary Forms: [employer] (Syriac), WORK NOTE
--- NOTE | 2018-03-20 18:53 | RAD ---
Date of service: 03/20/2018 HISTORY: cough, pneumonia COMPARISON: 08/06/2017 TECHNIQUE: Chest PA and lateral FINDINGS: LUNGS: No active pulmonary disease. PLEURA: No significant pleural effusion identified. No pneumothorax apparent. CARDIOVASCULAR: No aortic atherosclerotic calcification present. Normal cardiac size. No pulmonary vascular congestion. OSSEOUS STRUCTURES: No significant abnormalities. VISUALIZED UPPER ABDOMEN: Normal. OTHER FINDINGS: None. IMPRESSION: No active disease. No significant interval change compared to the prior examination(s).
[2018-03-20 19:23] LABS: URINE APPEARANCE CLEAR (CLEAR); URINE BILIRUBIN NEGATIVE (NEGATIVE); URINE BLOOD NEGATIVE (NEGATIVE); URINE COLOR YELLOW (YELLOW); URINE GLUCOSE (UA) NEGATIVE (NEGATIVE); URINE LEUKOCYTE ESTERASE NEGATIVE Leu/uL (NEGATIVE); URINE PROTEIN TRACE mg/dL (<30 mg/dL); URINE UROBILINOGEN 0.2 E.U./dL (<1 E.U./dL)
[2018-03-20 20:19] VITALS: BP 131/77; PULSE 87; TEMP 98.6; O2SAT 98
== END 2018-03-20 20:45 | disposition home or self-care (01) ==
LOC: ED 15:47
DX: R09.82 Postnasal drip (principal); E11.9 Type 2 diabetes mellitus without complications; I10 Essential (primary) hypertension
CPT/HCPCS: 71046; 81001; 81025; 87086; 96372; 99284; J1885

== ENCOUNTER 2018-04-01 00:55 | Emergency (ER) | payer MEDICARE, OTHER ==
[2018-04-01 00:55] VITALS: BMI 50.1
--- NOTE | 2018-04-01 01:26 | ED PDOC ---
Arrival/HPI - General Chief Complaint: GI Problem Time Seen by Provider: 04/01/18 01:03 Historian: Patient - History of Present Illness Narrative History of Present Illness (Text): 04/01/18 01:26 Brent Lees is a 38 year old female, whose past medical history includes migraines, who presents to the emergency department complaining of headache. Patient states she has been experiencing a headache, consistent with her usual migraines, with associated nausea and vomiting. Patient states she took Excedrin for pain, but denies any significant relief. Patient denies any fever, chills, chest pain, shortness of breath, abdominal pain, diarrhea, urinary symptoms, back pain, neck pain, dizziness, or any other complaints. Symptom Onset: Gradual Symptom Course: Unchanged Activities at Onset: Light Context: Home Past Medical History - Provider Review Nursing Documentation Reviewed: Yes - Infectious Disease Hx of Infectious Diseases: None - Tetanus Immunization Tetanus Immunization: Unknown - Reproductive Currently : No - Cardiac Hx Cardiac Disorders: Yes Hx Hypertension: Yes - Pulmonary Hx Respiratory Disorders: Yes Hx Asthma: Yes - Neurological Hx Neurological Disorder: Yes Hx Migraine: Yes - HEENT Hx HEENT Disorder: No - Renal Hx Renal Disorder: No - Endocrine/Metabolic Hx Endocrine Disorders: Yes Hx Diabetes Mellitus Type 2: Yes - Hematological/Oncological Hx Blood Disorders: No - Integumentary Hx Dermatological Disorder: No - Musculoskeletal/Rheumatological Hx Musculoskeletal Disorders: Yes Hx Back Pain: Yes Hx Herniated Disk: Yes Other/Comment: HEEL SPURS - Gastrointestinal Hx Gastrointestinal Disorders: Yes Hx Gastritis: Yes - Genitourinary/Gynecological Hx Genitourinary Disorders: No - Psychiatric Hx Depression: No Hx Substance Use: Yes - Surgical History Hx Section: Yes Hx Dilation and Curettage: Yes Hx Musculoskeletal Surgery: Yes (back) Hx Tubal Ligation: Yes Other/Comment: Back surgery, 04/2013, 1 , 5 miscarriages - Anesthesia Hx Anesthesia: Yes Hx Anesthesia Reactions: No Hx Malignant Hyperthermia: No - Suicidal Assessment Feels Threatened In Home Enviroment: No Family/Social History - Physician Review Nursing Documentation Reviewed: Yes Family/Social History: Unknown Family HX Smoking Status: Never Smoked Hx Alcohol Use: Yes Hx Substance Use: Yes Substance used: marijuana Hx Substance Use Treatment: No Allergies/Home Meds Allergies/Adverse Reactions: Allergies cat dander Allergy (Mild, Verified 04/01/18 01:08) ITCHING dog dander Allergy (Mild, Verified 04/01/18 01:08) ITCHING shellfish derived Allergy (Verified 04/01/18 01:08) ANAPHYLAXIS shrimp Allergy (Verified 04/01/18 01:08) ANAPHYLAXIS Review of Systems - Physician Review All systems were reviewed & negative as marked: Yes - Review of Systems Constitutional: Normal. absent: Fevers Eyes: Normal ENT: Normal Respiratory: Normal. absent: SOB, Cough Cardiovascular: Normal. absent: Chest Pain Gastrointestinal: Nausea, Vomiting. absent: Abdominal Pain, Diarrhea Genitourinary Female: Normal. absent: Dysuria, Frequency, Hematuria, Urine Output Changes Musculoskeletal: Normal. absent: Back Pain, Neck Pain Skin: Normal. absent: Rash Neurological: Headache. absent: Dizziness Endocrine: Normal Hemo/Lymphatic: Normal Psychiatric: Normal Physical Exam Vital Signs Reviewed: Yes Temperature: Afebrile Blood Pressure: Normal Pulse: Regular Respiratory Rate: Normal Appearance: Positive for: Well-Appearing, Non-Toxic, Comfortable Pain Distress: None Mental Status: Positive for: Alert and Oriented X 3 - Systems Exam Head: Present: Atraumatic, Normocephalic Pupils: Present: PERRL Extroacular Muscles: Present: EOMI Conjunctiva: Present: Normal Mouth: Present: Moist Mucous Membranes Neck: Present: Normal Range of Motion Respiratory/Chest: Present: Clear to Auscultation, Good Air Exchange. No: Respiratory Distress, Accessory Muscle Use Cardiovascular: Present: Regular Rate and Rhythm, Normal S1, S2. No: Murmurs Abdomen: No: Tenderness, Distention, Peritoneal Signs Back: Present: Normal Inspection Upper Extremity: Present: Normal Inspection. No: Cyanosis, Edema Lower Extremity: Present: Normal Inspection. No: Edema Neurological: Present: GCS=15, CN II-XII Intact, Speech Normal Skin: Present: Warm, Dry, Normal Color. No: Rashes Psychiatric: Present: Alert, Oriented x 3, Normal Insight, Normal Concentration Medical Decision Making ED Course and Treatment: 04/01/18 01:26 Impression: 38 year old female complaining of headache, nausea, and vomiting. Plan: -- Benadryl -- Reglan -- IV fluids -- Reassess and disposition Prior Visits: Notes and results from previous visits were reviewed. Progress Notes: - Scribe Statement The provider has reviewed the documentation as recorded by the Lamberto Walker Provider Scribe Attestation: All medical record entries made by the Scribe were at my direction and personally dictated by me. I have reviewed the chart and agree that the record accurately reflects my personal performance of the history, physical exam, medical decision making, and the department course for this patient. I have also personally directed, reviewed, and agree with the discharge instructions and disposition. Disposition/Present on Arrival - Present on Arrival Any Indicators Present on Arrival: No History of DVT/PE: No History of Uncontrolled Diabetes: No Urinary Catheter: No History of Decub. Ulcer: No History Surgical Site Infection Following: None - Disposition Have Diagnosis and Disposition been Completed?: Yes Diagnosis: Migraine headache Disposition: HOME/ ROUTINE Disposition Time: 05:26 Patient Plan: Discharge Condition: GOOD Discharge Instructions (ExitCare): Migraine Headache (DC) Additional Instructions: Rest/no strenuous physical activity/medication as prescribed/follow up with your doctor Prescriptions: Acetaminophen/Butalbital/Caf [Fioricet] 1 tab PO Q6 PRN #16 tab PRN Reason: Headache Referrals: James Fallon DO [Primary Care Provider] - Follow up with primary Forms: [employer] (Maltese)
[2018-04-01] MEDS ORDERED: DiphenhydrAMINE 50 mg/ml Inj IVP ONE (01:28)
[2018-04-01] MEDS ORDERED: Sodium Chloride 0.9% 1,000 ML IV SCH (01:30)
[2018-04-01 05:31] VITALS: BP 109/77
[2018-04-01 05:38] VITALS: PULSE 90; RESP 18; TEMP 98.1; O2SAT 98
== END 2018-04-01 05:36 | disposition home or self-care (01) ==
LOC: ED 00:55
DX: G43.909 Migraine, unspecified, not intractable, without status migrainosus (principal); E11.9 Type 2 diabetes mellitus without complications; I10 Essential (primary) hypertension
CPT/HCPCS: 96374; 96375; 99285; J1200; J2765; J7030

== ENCOUNTER 2018-07-09 17:23 | Emergency (ER) | payer MEDICARE, OTHER ==
[2018-07-09 17:47] VITALS: RESP 18; TEMP 99.3; O2SAT 99; BMI 49.0
[2018-07-09] MEDS ORDERED: Amoxicillin-Clav 500-125 mg Tab PO STA (18:26)
[2018-07-09] MEDS ORDERED: Lidocaine 5% Patch TD STA (18:26)
[2018-07-09] MEDS ORDERED: Meloxicam 7.5 MG TAB PO STA (18:26)
--- NOTE | 2018-07-09 18:31 | ED PDOC ---
Arrival/HPI - General Chief Complaint: Medical Clearance Time Seen by Provider: 07/09/18 17:26 Historian: Patient - History of Present Illness Narrative History of Present Illness (Text): 07/09/18 18:34 38 yo F with PMH of asthma, anemia and diabetes on metofrmin, presents complaining of 4 day h/o atraumatic L low back pain, worse with movement, states that she has been taking flexeril Rx by her pmd with minimal relief. Reports no trauma, injury, fever, radiation, bowel/bladder incontinence, weakness, numbness, urinary symptoms, abdominal pain. She also reports of a pimple to the R nare x 4-5 days which she attempted to "pop," and yellow-green pus came out, associated with sore throat and ear pain. Otherwise, reports no chills, headache, shortness of breath, neck/throat swelling, facial swelling. PMD [place] Past Medical History - Infectious Disease Hx of Infectious Diseases: None - Tetanus Immunization Tetanus Immunization: Unknown - Cardiac Hx Cardiac Disorders: Yes Hx Hypertension: Yes - Pulmonary Hx Respiratory Disorders: Yes Hx Asthma: Yes - Neurological Hx Neurological Disorder: Yes Hx Migraine: Yes - HEENT Hx HEENT Disorder: No - Renal Hx Renal Disorder: No - Endocrine/Metabolic Hx Endocrine Disorders: Yes Hx Diabetes Mellitus Type 2: Yes - Hematological/Oncological Hx Blood Disorders: No - Integumentary Hx Dermatological Disorder: No - Musculoskeletal/Rheumatological Hx Musculoskeletal Disorders: Yes Hx Back Pain: Yes Hx Herniated Disk: Yes Other/Comment: HEEL SPURS - Gastrointestinal Hx Gastrointestinal Disorders: Yes Hx Gastritis: Yes - Genitourinary/Gynecological Hx Genitourinary Disorders: No - Psychiatric Hx Depression: No Hx Substance Use: Yes - Surgical History Hx Section: Yes Hx Dilation and Curettage: Yes Hx Musculoskeletal Surgery: Yes (back) Hx Tubal Ligation: Yes Other/Comment: Back surgery, 04/2013, 1 , 5 miscarriages - Anesthesia Hx Anesthesia: Yes Hx Anesthesia Reactions: No Hx Malignant Hyperthermia: No - Suicidal Assessment Feels Threatened In Home Enviroment: No Family/Social History Family/Social History: No Known Family HX Smoking Status: Never Smoked Hx Alcohol Use: Yes Hx Substance Use: Yes Substance used: marijuana Hx Substance Use Treatment: No Allergies/Home Meds Allergies/Adverse Reactions: Allergies cat dander Allergy (Mild, Verified 04/01/18 01:08) ITCHING dog dander Allergy (Mild, Verified 04/01/18 01:08) ITCHING shellfish derived Allergy (Verified 04/01/18 01:08) ANAPHYLAXIS shrimp Allergy (Verified 04/01/18 01:08) ANAPHYLAXIS Review of Systems - Review of Systems Constitutional: absent: Fatigue, Fevers ENT: Sore Throat, Other (+b/l ear pain). absent: Rhinorrhea, Epistaxis Respiratory: absent: SOB, Cough Cardiovascular: absent: Chest Pain, Palpitations Gastrointestinal: absent: Abdominal Pain, Diarrhea, Vomiting Genitourinary Female: absent: Dysuria, Frequency, Hematuria Musculoskeletal: Back Pain. absent: Arthralgias, Neck Pain Skin: absent: Rash, Skin Lesions Neurological: absent: Headache, Dizziness Physical Exam Vital Signs Temp Pulse Resp BP Pulse Ox 07/09/18 17:46 99.3 F 95 H 18 129/81 99 Temperature: Afebrile Blood Pressure: Normal Pulse: Regular Respiratory Rate: Normal Appearance: Positive for: Well-Appearing, Non-Toxic, Comfortable Pain Distress: None Mental Status: Positive for: Alert and Oriented X 3 - Systems Exam Head: Present: Atraumatic, Normocephalic Pupils: Present: PERRL Extroacular Muscles: Present: EOMI Conjunctiva: Present: Normal Ears: Present: Normal, NORMAL TM Mouth: Present: Moist Mucous Membranes Pharnyx: Present: ERYTHEMA, EXUDATE. No: Peritonsilar Swelling, Uvular Deviation, Muffled/Hoarse Voice, Strider, Soft Palate/Uvular Edema Nose (External): Present: Other (+mildly tender small ~1cm non-draining, non- fluctuant abscess to the R nare without surrounding erythema or edema) Neck: Present: Normal Range of Motion. No: Meningeal Signs, Lymphadenopathy Respiratory/Chest: Present: Clear to Auscultation, Good Air Exchange. No: Respiratory Distress, Accessory Muscle Use Cardiovascular: Present: Regular Rate and Rhythm, Normal S1, S2. No: Murmurs Abdomen: No: Tenderness, Distention, Peritoneal Signs Back: Present: Normal Inspection, Paraspinal Tenderness (+mild R paralumbar tenderness with mild spasm). No: Midline Tenderness Upper Extremity: Present: Normal Inspection. No: Cyanosis, Edema Lower Extremity: Present: Normal Inspection. No: Edema Neurological: Present: GCS=15, CN II-XII Intact, Speech Normal, Motor Func Grossly Intact, Normal Sensory Function Skin: Present: Warm, Dry, Normal Color. No: Rashes Psychiatric: Present: Alert, Oriented x 3, Normal Insight, Normal Concentration Medical Decision Making ED Course and Treatment: 07/09/18 18:29 Patient medicated with mobic 15 mg PO, augmentin 500 mg PO, tdap IM and lidoderm patch. Diagnosis of skin abscess and muscle spasm of the lumbar muscles d/w the patient. Advised to continue to apply warm compresses to the abscess, and to continue taking flexeril. Otherwise, advised to f/u w/ pmd w/o fail in 1-2 days. Take medications as prescribed and to return to the ER at any time for any new or worsening symptoms. - PA / STAFF DEVELOPMENT EDUCATOR / Resident Statement / has reviewed & agrees with the documentation as recorded. Disposition/Present on Arrival - Present on Arrival Any Indicators Present on Arrival: No History of DVT/PE: No History of Uncontrolled Diabetes: No Urinary Catheter: No History of Decub. Ulcer: No History Surgical Site Infection Following: None - Disposition Have Diagnosis and Disposition been Completed?: Yes Diagnosis: Pharyngitis, Skin abscess, Low back pain Disposition: HOME/ ROUTINE Disposition Time: 18:30 Patient Plan: Discharge Patient Problems: Current Active Problems Problem Status Onset Low back pain Acute Pharyngitis Acute Skin abscess Acute Condition: GOOD Discharge Instructions (ExitCare): Low Back Pain in Adults, Skin Abscess, Sore Throat, Adult (DC) Additional Instructions: Follow up with pmd without fail, take medications as prescribed. Continue taking cyclobenzaprine muscle relaxer. Continue to apply warm compresses to abscess. Return to the ER at any time for any new or worsening symptoms. Prescriptions: Amoxicillin/Potassium Clav [Augmentin 500-125 Tablet] 1 each PO TID #30 tablet Meloxicam [Mobic] 15 mg PO DAILY #20 tab Forms: [employer] ([place])
[2018-07-09] MEDS ORDERED: TDAP Vaccine 0.5 mL Syr IM ONE (18:37)
[2018-07-09 18:59] VITALS: BP 126/74; PULSE 86
== END 2018-07-09 19:15 | disposition home or self-care (01) ==
LOC: ED 17:23
DX: M54.5 Low back pain (principal); J02.9 Acute pharyngitis, unspecified; L02.818 Cutaneous abscess of other sites; E11.9 Type 2 diabetes mellitus without complications; I10 Essential (primary) hypertension; Z23 Encounter for immunization